=== PATIENT | female | born 1930 | race Caucasian/White ===

== ENCOUNTER 2017-07-14 21:46 | Emergency (ER) | payer OTHER, BC ==
[2017-07-14 21:56] VITALS: TEMP 97.5
--- NOTE | 2017-07-14 22:37 | EDPHY ---
H & P Stated Complaint: General weakness. Time Seen by Provider: 07/14/17 22:14 HPI/ROS: HPI The patient presents with generalized weakness which has been worse over the last 2 days though she has had symptoms for a few weeks now. She generally feels tired, somewhat short of breath, and has difficulty getting around the house. She normally is able to walk around the house with a walker, she does have residual weakness of her right leg from a stroke about 5 years ago. She feels that this weakness is now more pronounced. She occasionally feels dizzy with changes in position. She feels a funny sensation in her head. She denies any chest pain, nausea, vomiting, abdominal pain, constipation. She recently started on a gluten free diet. She denies any new medication changes.. REVIEW OF SYSTEMS Constitutional: No fever, no chills. Eyes: No discharge. ENT: No sore throat. Cardiovascular: No chest pain, no palpitations. Respiratory: No cough, no shortness of breath. Gastrointestinal: No abdominal pain, no vomiting. Genitourinary: No hematuria. Musculoskeletal: No back pain. Skin: No rashes. Neurological: No headache. PMHx: Hypertension, atrial fibrillation, diastolic CHF, hypothyroidism, history of CVA Soc Hx: Lives at home, daughter and son-in-law resides with her PHYSICAL General Appearance: Alert, no distress Eyes: Pupils equal and round no pallor or injection ENT, Mouth: Mucous membranes moist Respiratory: There are no retractions, lungs are clear to auscultation Cardiovascular: Regular rate and rhythm Gastrointestinal: Abdomen is soft and non-tender, no masses, bowel sounds normal Neurological: A&Ox3, cranial nerves 2-12 intact, no pronator drift, 5/5 strength in her upper extremities with right lower extremity weakness Skin: Warm and dry, no rashes Musculoskeletal: Neck is supple non tender Extremities: symmetrical, full range of motion Psychiatric: Patient is oriented X 3, there is no agitation Source: Patient, Family Exam Limitations: No limitations - Personal History Current Tetanus/Diphtheria Vaccine: Unsure Current Tetanus Diphtheria and Acellular Pertussis (TDAP): Unsure - Medical/Surgical History Hx Asthma: No Hx Chronic Respiratory Disease: No Hx Diabetes: No Hx Cardiac Disease: No Hx Renal Disease: No Hx Cirrhosis: No Hx Alcoholism: No Hx HIV/AIDS: No Hx Splenectomy or Spleen Trauma: No Other PMH: a-fib, UTI, thyroid out, appy, DM, HTN, CHF. - Social History Smoking Status: Never smoked Constitutional: Initial Vital Signs Temperature (C) 36.4 C 07/14/17 21:51 Heart Rate 74 07/14/17 21:51 Respiratory Rate 18 07/14/17 21:51 Blood Pressure 162/94 H 07/14/17 21:51 O2 Sat (%) 92 07/14/17 21:51 O2 Delivery Mode Room Air Allergies/Adverse Reactions: codeine Allergy (Verified 07/14/17 21:56) Home Medications: Medication Instructions Recorded Ergocalciferol [Vitamin D2 (*)] 50,000 unit PO Q7D 02/16/15 Levothyroxine [Synthroid 175 mcg 175 mcg PO DAILY06 02/16/15 (*)] Losartan Potassium [Cozaar 50 mg 50 mg PO DAILY 02/16/15 (*)] Metoprolol Succinate Xr [Toprol Xl 100 mg PO DAILY 02/16/15 100 mg (*)] metFORMIN HCL [Glucophage 500 mg 500 mg PO DAILY 02/16/15 (*)] Eliquis 07/14/17 Gabapentin 07/14/17 Nitrofurantoin Monohyd/M-Cryst 100 mg PO BID #10 capsule 07/15/17 [Macrobid 100 mg Capsule] Medical Decision Making - Diagnostics Imaging Results: Imaging Impressions Chest X-Ray 07/14/17 22:32 Impression: Stable mild cardiomegaly. Question mild bronchitis. Head CT 07/14/17 22:32 Impression: No evidence for acute intracranial abnormality. Small old infarct superior right cerebellum. Extensive periventricular and deep hemispheric white matter change can be seen with small vessel ischemic disease. Generalized cerebral atrophy. Results called and discussed with Lizbeth Uribe MD at 07/14/2017 22:58. Differential Diagnosis: This is an 87-year-old female with multiple medical problems including hypertension, diabetes, atrial fibrillation, the diastolic CHF, hypothyroidism who presents brought in by her family for weakness over the last several days. On exam, she has usual right-sided weakness of her leg, however otherwise has a nonfocal neurologic exam. Differential diagnosis is broad and includes infection such as UTI or pneumonia , electrolyte disturbance, renal failure, new CVA, atrial fibrillation, mi. In the emergency department, labs and studies were checked and were relatively unremarkable. We were able to obtain urine dip only given small specimen size. This was positive for for leukocytes. I feel UTI is most likely diagnosis here. I have ordered a dose of ceftriaxone for her. I have consulted with Dr. Veronique Robb on-call for the patient's primary care physician. Given that she has family at home to watch over her, she can be discharged home with prescription for antibiotics. Unfortunately, we have not been able to reach the patient's family who left because I was under the impression that the patient would likely be admitted to the hospital. We have called several times and left messages but have not heard back. I discussed the case again with Dr. Robb and we plan to keep the patient in the emergency room until daylight hours to see if we can get a hold of family. Fortunately, the patient has been resting comfortably throughout her time here. We did receive a call from the patient's daughter at about 8 o'clock, she will come and pick the patient up from the emergency department. I have conveyed this information to Dr. Robb. We will plan for close outpatient follow-up in few days. She is to take Macrobid until then. - Data Points Laboratory Results: Laboratory Results 07/14/17 23:04 07/14/17 23:04 07/14/17 07/14/17 23:04 23:04 WBC 7.31 10^3/uL 10^3/uL (3.80-9.50) RBC 4.25 10^6/uL 10^6/uL (4.18-5.33) Hgb 13.6 g/dL g/dL (12.6-16.3) Hct 39.7 % % (38.0-47.0) MCV 93.4 fL fL (81.5-99.8) MCH 32.0 pg pg (27.9-34.1) MCHC 34.3 g/dL g/dL (32.4-36.7) RDW 13.5 % % (11.5-15.2) Plt Count 169 10^3/uL 10^3/uL (150-400) MPV 10.6 fL fL (8.7-11.7) Neut % (Auto) 34.2 % L % (39.3-74.2) Lymph % (Auto) 51.4 % H % (15.0-45.0) [place] % (Auto) 11.8 % % (4.5-13.0) Eos % (Auto) 2.1 % % (0.6-7.6) Baso % (Auto) 0.4 % % (0.3-1.7) Nucleat RBC Rel Count 0.0 % % (0.0-0.2) Absolute Neuts (auto) 2.50 10^3/uL 10^3/uL (1.70-6.50) Absolute Lymphs (auto) 3.76 10^3/uL H 10^3/uL (1.00-3.00) Absolute Monos (auto) 0.86 10^3/uL H 10^3/uL (0.30-0.80) Absolute Eos (auto) 0.15 10^3/uL 10^3/uL (0.03-0.40) Absolute Basos (auto) 0.03 10^3/uL 10^3/uL (0.02-0.10) Absolute Nucleated RBC 0.00 10^3/uL 10^3/uL (0-0.01) Immature Gran % 0.1 % % (0.0-1.1) Immature Gran # 0.01 10^3/uL 10^3/uL (0.00-0.10) Sodium 138 mEq/L mEq/L (134-144) Potassium 3.9 mEq/L mEq/L (3.5-5.2) Chloride 101 mEq/L mEq/L (97-110) Carbon Dioxide 25 mEq/l mEq/l (22-31) Anion Gap 12 mEq/L mEq/L (8-16) BUN 16 mg/dL mg/dL (7-23) Creatinine 0.8 mg/dL mg/dL (0.6-1.0) Estimated GFR > 60 Glucose 113 mg/dL H mg/dL (70-100) Calcium 9.7 mg/dL mg/dL (8.5-10.4) Total Bilirubin 0.5 mg/dL mg/dL (0.1-1.4) Conjugated Bilirubin 0.3 mg/dL mg/dL (0.0-0.5) Unconjugated Bilirubin 0.2 mg/dL mg/dL (0.0-1.1) AST 31 IU/L IU/L (14-46) ALT 55 IU/L H IU/L (9-52) Alkaline Phosphatase 53 IU/L IU/L (38-126) Troponin I < 0.012 ng/mL ng/mL (0.000-0.034) NT-Pro-B Natriuret Pep 346 pg/mL pg/mL (0-450) Total Protein 7.3 g/dL g/dL (6.3-8.2) Albumin 4.1 g/dL g/dL (3.5-5.0) TSH 29.000 uIU/mL H uIU/mL (0.465-4.680) Medications Given: Discontinued Medications Ceftriaxone Sodium/Dextrose (Rocephin 1 Gm (Premix)) 50 mls @ 100 mls/hr IV EDNOW ONE PRN Reason: Protocol Stop: 07/15/17 01:01 Last Admin: 07/15/17 00:39 Dose: 50 mls Departure - Departure Disposition: Home, Routine, Self-Care Clinical Impression: UTI (urinary tract infection) Qualifiers: Urinary tract infection type: site unspecified Hematuria presence: without hematuria Qualified Code(s): N39.0 - Urinary tract infection, site not specified Condition: Good
--- NOTE | 2017-07-14 23:14 | CPEKG ---
Heart Rate: 71 RR Interval: 845 QRSD Interval: 90 QT Interval: 412 QTC Interval: 448 QRS [place]: -32 T Wave [place]: -38 EKG Severity - ABNORMAL ECG - EKG Impression: ATRIAL FIBRILLATION EKG Impression: VENTRICULAR PREMATURE COMPLEX EKG Impression: LEFT AXIS DEVIATION EKG Impression: BORDERLINE T ABNORMALITIES, INFERIOR LEADS Electronically Signed By: Lizbeth Uribe 15-Jul-2017 08:03:26
[2017-07-14 23:28] LABS: % IMMATURE GRANULYOCYTES 0.1 % (0.0-1.1); ABSOLUTE IMMATURE GRANULOCYTES 0.01 10^3/uL (0.00-0.10); ADD DIFF? NO; ADD MORPH? NO; ADD SCAN? NO; ATYPICAL LYMPHOCYTE FLAG 10 (0-99); FRAGMENT RBC FLAG 0 (0-99); HEMATOCRIT 39.7 % (38.0-47.0); HEMOGLOBIN 13.6 g/dL (12.6-16.3); LEFT SHIFT FLG 0 (0-99); LIPEMIA HEMOLYSIS FLAG 90 (0-99); MEAN CELL HEMOGLOBIN CONCENTR. 34.3 g/dL (32.4-36.7); MEAN CELL VOLUME 93.4 fL (81.5-99.8); MEAN PLATELET VOLUME 10.6 fL (8.7-11.7); PLATELET CLUMPS FLAG 0 (0-99); PLATELET COUNT 169 10^3/uL (150-400); RED BLOOD CELL COUNT 4.25 10^6/uL (4.18-5.33); RED CELL DISTRIBUTION WIDTH 13.5 % (11.5-15.2)
[2017-07-14 23:57] LABS: ALANINE AMINOTRANSFERASE 55 IU/L (9-52); ALBUMIN 4.1 g/dL (3.5-5.0); ALKALINE PHOSPHATASE 53 IU/L (38-126); ANION GAP 12 mEq/L (8-16); ASPARTATE AMINOTRANSFERASE 31 IU/L (14-46); BILIRUBIN,TOTAL 0.5 mg/dL (0.1-1.4); BILIRUBIN-CONJUGATED 0.3 mg/dL (0.0-0.5); BILIRUBIN-UNCONJUGATED 0.2 mg/dL (0.0-1.1); CALCIUM 9.7 mg/dL (8.5-10.4); CARBON DIOXIDE 25 mEq/l (22-31); CHLORIDE 101 mEq/L (97-110); CREATININE 0.8 mg/dL (0.6-1.0); GLOMERULAR FILTRATION RATE > 60; GLUCOSE 113 mg/dL (70-100); POTASSIUM 3.9 mEq/L (3.5-5.2); SODIUM 138 mEq/L (134-144); TOTAL PROTEIN 7.3 g/dL (6.3-8.2)
[2017-07-15 00:09] LABS: TROPONIN I < 0.012 ng/mL (0.000-0.034)
[2017-07-15 08:05] VITALS: RESP 16
[2017-07-15 09:22] VITALS: BP 150/60; PULSE 70; O2SAT 95
== END 2017-07-15 09:35 | disposition home or self-care (01) ==
LOC: UNDOADMOB 07-15 07:10
DX: N39.0 Urinary tract infection, site not specified (principal); I11.0 Hypertensive heart disease with heart failure; I50.9 Heart failure, unspecified; E11.9 Type 2 diabetes mellitus without complications; Z79.01 Long term (current) use of anticoagulants; Z79.84 Long term (current) use of oral hypoglycemic drugs; Z86.73 Personal history of transient ischemic attack (TIA), and cerebral infarction without residual deficits
CPT/HCPCS: 70450; 71020; 93005; J0696; 96365

== ENCOUNTER 2017-10-28 14:44 | Inpatient (IN) | payer OTHER, BC ==
--- NOTE | 2017-10-28 14:55 | EDPHY ---
H & P Time Seen by Provider: 10/28/17 14:47 HPI/ROS: CHIEF COMPLAINT: Weakness, fall HISTORY OF PRESENT ILLNESS: The patient presents to the emergency department by paramedics after she has had increasing weakness today. The patient reportedly suffered a mechanical fall last night. She did not strike her head or lose consciousness. She is anticoagulated chronically for atrial fibrillation. Patient also has a remote history of stroke resulting in some right-sided weakness. She typically is able to ambulate but has been unable to do so today. The patient denies any localizing numbness or weakness. The daughter does report she has had a 3 day history of a dry cough. The patient's urine is also been foul smelling. The patient was seen in the emergency department in June of this year with similar weakness and was diagnosed with a urinary tract infection. The patient denies any vomiting, abdominal pain or diarrhea. REVIEW OF SYSTEMS: A comprehensive 10 point review of systems is otherwise negative aside from elements mentioned in the history of present illness. Source: Patient Exam Limitations: No limitations - Medical/Surgical History Hx Asthma: No Hx Chronic Respiratory Disease: No Hx Diabetes: No Hx Cardiac Disease: No Hx Renal Disease: No Hx Cirrhosis: No Hx Alcoholism: No Hx HIV/AIDS: No Hx Splenectomy or Spleen Trauma: No Other PMH: a-fib, UTI, thyroid out, appy, DM, HTN, CHF. - Social History Smoking Status: Never smoked - Physical Exam Exam: General Appearance: Elderly female, obese, no acute distress Eyes: Pupils equal and round no pallor or injection ENT, Mouth: Mucous membranes moist Respiratory: There are no retractions, lungs are clear to auscultation Cardiovascular: Irregular consistent with her known history of atrial fibrillation Gastrointestinal: Abdomen is soft and nontender, no masses, bowel sounds normal Neurological: Right-sided weakness noted from prior stroke, grossly normal cranial nerves Skin: Warm and dry, no rashes Musculoskeletal: Neck is supple nontender Extremities: symmetrical, full range of motion Constitutional: Initial Vital Signs Temperature (C) 36.9 C 10/28/17 14:53 Heart Rate 98 10/28/17 14:53 Respiratory Rate 18 10/28/17 14:53 Blood Pressure 126/65 H 10/28/17 14:53 O2 Sat (%) 93 10/28/17 14:53 O2 Delivery Mode Room Air Allergies/Adverse Reactions: levothyroxine Allergy (Mild, Verified 10/28/17 17:31) Other-Enter Comments codeine Allergy (Verified 10/28/17 17:31) Unknown gluten Allergy (Verified 10/28/17 17:31) Diarrhea Home Medications: Medication Instructions Recorded Apixaban [Eliquis] 5 mg PO BID 10/28/17 Chlorthalidone [Chlorthalidone 25 12.5 mg PO DAILY 10/28/17 mg (*)] Ergocalciferol [Vitamin D2 (*)] 50,000 unit PO CHOI 10/28/17 Gabapentin [Neurontin 100 MG (*)] 100 mg PO HS 10/28/17 Levothyroxine [Synthroid 125 mcg 125 mcg PO DAILY06 10/28/17 (*)] Liothyronine Sodium [Cytomel] 5 mcg PO BID 10/28/17 Losartan Potassium [Cozaar 50 mg 50 mg PO BID 10/28/17 (*)] Metoprolol Succinate Xr [Toprol Xl 75 mg PO DAILY 10/28/17 50 mg (*)] metFORMIN HCL [Glucophage 500 mg 500 mg PO DAILY 10/28/17 (*)] traZODone [traZODONE 50MG (*)] 100 mg PO HS 10/28/17 Medical Decision Making - Diagnostics EKG Interpretation: EKG: Complete interpretation has been separately recorded in the [email or web address] archive. Summary impression: Atrial fibrillation, rate 103, no ST segment elevation or depression Imaging Results: Imaging Impressions Chest X-Ray 10/28/17 15:02 Impression: Stable mild cardiomegaly. Question minimal bronchitis. Head CT 10/28/17 15:02 Impression: 1. Stable elderly brain. Specifically no hemorrhage. 2. New ethmoid mucosal thickening. Results called to Dr. Ino Albarado at 3:44 PM General information for patients regarding this examination can be found at [email or web address]. If you have questions or comments about this report, please contact me at [phone] (hospital) or [phone] (cell). ED Course/Re-evaluation: The patient presents the ED with acutely worsening generalized weakness for the past day. The patient is currently anticoagulated for atrial fibrillation. She did reportedly fall and strike her head last night. The patient was taken for a noncontrast head CT scan which demonstrates no evidence of intracranial hemorrhage. The patient's chest x-ray demonstrates mild bronchitis. Her urinalysis demonstrates no evidence of infection. Her EKG shows chronic atrial fibrillation. The patient presents to the ED with global weakness in the setting of a recent mild cough and likely viral syndrome. The patient is unable to safely ambulate and is a fall risk. The patient's family does not feel as if she can safely be discharged home. The patient will be admitted to the hospital for gentle IV fluid rehydration this evening. I re-evaluated the patient at 5:00 p.m. and she continues to be in no acute distress. Consultation was made with her on-call primary care provider who will admit the patient this evening. She will be admitted by Dr. Garibay. The patient was given an albuterol nebulizer for cough. I have ordered a influenza PCR. Differential Diagnosis: Differential diagnosis considered includes pneumonia, urinary tract infection, dehydration, intracranial hemorrhage, metabolic abnormality, renal failure - Data Points Laboratory Results: Laboratory Results 10/28/17 15:40 10/28/17 15:40 10/28/17 10/28/17 10/28/17 16:05 15:40 15:40 WBC 4.62 10^3/uL 10^3/uL (3.80-9.50) RBC 4.26 10^6/uL 10^6/uL (4.18-5.33) Hgb 14.1 g/dL g/dL (12.6-16.3) Hct 39.4 % % (38.0-47.0) MCV 92.5 fL fL (81.5-99.8) MCH 33.1 pg pg (27.9-34.1) MCHC 35.8 g/dL g/dL (32.4-36.7) RDW 13.2 % % (11.5-15.2) Plt Count 138 10^3/uL L 10^3/uL (150-400) MPV 9.7 fL fL (8.7-11.7) Neut % (Auto) 61.1 % % (39.3-74.2) Lymph % (Auto) 19.3 % % (15.0-45.0) [place] % (Auto) 18.4 % H % (4.5-13.0) Eos % (Auto) 0.4 % L % (0.6-7.6) Baso % (Auto) 0.4 % % (0.3-1.7) Nucleat RBC Rel Count 0.0 % % (0.0-0.2) Absolute Neuts (auto) 2.82 10^3/uL 10^3/uL (1.70-6.50) Absolute Lymphs (auto) 0.89 10^3/uL L 10^3/uL (1.00-3.00) Absolute Monos (auto) 0.85 10^3/uL H 10^3/uL (0.30-0.80) Absolute Eos (auto) 0.02 10^3/uL L 10^3/uL (0.03-0.40) Absolute Basos (auto) 0.02 10^3/uL 10^3/uL (0.02-0.10) Absolute Nucleated RBC 0.00 10^3/uL 10^3/uL (0-0.01) Immature Gran % 0.4 % % (0.0-1.1) Immature Gran # 0.02 10^3/uL 10^3/uL (0.00-0.10) Sodium 137 mEq/L mEq/L (134-144) Potassium 3.8 mEq/L mEq/L (3.5-5.2) Chloride 98 mEq/L mEq/L (97-110) Carbon Dioxide 27 mEq/l mEq/l (22-31) Anion Gap 12 mEq/L mEq/L (8-16) BUN 12 mg/dL mg/dL (7-23) Creatinine 0.8 mg/dL mg/dL (0.6-1.0) Estimated GFR > 60 Glucose 142 mg/dL H mg/dL (70-100) Calcium 9.4 mg/dL mg/dL (8.5-10.4) Urine Color YELLOW Urine Appearance HAZY Urine pH 6.0 (5.0-7.5) Ur Specific [place] 1.017 (1.002-1.030) Urine Protein NEGATIVE (NEGATIVE) Urine Ketones NEGATIVE (NEGATIVE) Urine Blood NEGATIVE (NEGATIVE) Urine Nitrate NEGATIVE (NEGATIVE) Urine Bilirubin NEGATIVE (NEGATIVE) Urine Urobilinogen NEGATIVE EU EU (0.2-1.0) Ur Leukocyte Esterase NEGATIVE (NEGATIVE) Urine Glucose NEGATIVE (NEGATIVE) Medications Given: Discontinued Medications Albuterol (Proventil Neb) 3 ml IH EDNOW ONE Stop: 10/28/17 16:51 Last Admin: 10/28/17 16:56 Dose: 3 ml Sodium Chloride (Ns) 500 mls @ 0 mls/hr IV EDNOW ONE; Wide Open PRN Reason: Protocol Stop: 10/28/17 16:37 Last Admin: 10/28/17 16:44 Dose: 500 mls Departure - Departure Disposition: [facility]
--- NOTE | 2017-10-28 15:03 | CPEKG ---
Heart Rate: 103 RR Interval: 583 QRSD Interval: 88 QT Interval: 339 QTC Interval: 444 QRS [place]: -42 EKG Severity - ABNORMAL ECG - EKG Impression: ATRIAL FIBRILLATION, V-RATE 79-128 EKG Impression: LEFT AXIS DEVIATION Electronically Signed By: Brandon Albarado 28-Oct-2017 15:47:37
[2017-10-28 15:46] LABS: PLATELET COUNT 138 10^3/uL (150-400)
[2017-10-28] MEDS ORDERED: NS 500 ML IV ONE (16:36)
[2017-10-28] MEDS ORDERED: ALBUTEROL 3 ML DEYVIAL IH ONE (16:50)
--- NOTE | 2017-10-28 19:53 | GHP ---
[f rep st] HISTORY AND PHYSICAL DATE OF ADMISSION: 10/28/2017 REASON FOR ADMISSION: Influenza A, weakness. HISTORY: The patient is an 87-year-old female who has had a cough for the last 2 days. Yesterday parvin butler was feeling weak and fell trying to use her walker, and today has been too weak to get around, get out of bed, or do anything. She has no appetite. She has a nonproductive cough and generalized musc le aches. PAST MEDICAL HISTORY: Thyroidectomy for a benign tumor at 66, atrial fibrillation since 2010, type 2 diabetes, hypertension, mild short-term memory loss, CVA due to atrial fibrillation 2010 with mild r ight-sided weakness and some minimal speech limitation, macular degeneration, dental issues, congesti ve heart failure unspecified, hypothyroidism, peripheral vascular disease, chronic insomnia, and hypo belinda. CURRENT MEDICATIONS ARE: Chlorthalidone 12.5 mg daily, metformin 500 mg daily, trazodone 50 mg b.i.d ., losartan 50 mg b.i.d., metoprolol succinate 75 mg once daily, Synthroid 125 mcg p.o. daily, Eliqui s 5 mg b.i.d., ergocalciferol 50,000 units every 7 days, gabapentin 100 mg 1-2 h.s. for sleep, choles tyramine 1 scoop twice daily with juice or water, Lorazepam 0.5 mg twice daily as needed, vitamin D3 2,000 units once daily. REVIEW OF SYSTEMS: Consistent with the HPI. She is very weak, unable to walk, unable to move around . She has trouble rolling over in bed even. She has muscle soreness. Nonproductive cough. She den ies fever or chills. PHYSICAL EXAMINATION: GENERAL: An 87-year-old patient who appears stated age. VITAL SIGNS: Blood pressure 131/99, pulse 92 and irregular, respiratory rate 16, oxygen saturation is 93% on room air, t emperature is 98 orally. EYES: Pupils are equal and reactive. LUNGS: Clear to auscultation. HEAR T: Irregularly irregular rhythm. ABDOMEN: Nontender. EXTREMITIES: She has 1+ ankle edema. NEURO : She moves all extremities, but has difficulty rolling and moving in bed on her own. LABORATORY DATA: Blood work reveals a normal white count, but with an elevated mono, and a relativel y low absolute lymphocyte count. Platelet count is 138,000, which is lower than her usual, which is between 269,00 and 200,000. Chemistry reveals sodium 137, potassium 3.8, chloride 98, BUN 12, creati nine 0.8, glucose 142. Nasal swab for influenza was negative for B, but positive for influenza A. IMPRESSION: Elderly female with diabetes, congestive heart failure, hypothyroidism, presents with we akness secondary to influenza A. PLAN: We will admit. We will place on respiratory isolation. We will place on Tamiflu. We will ob serve closely. We will monitor blood sugars. /[id number]/MODL
[2017-10-28] MEDS: LIOTHYRONINE SODIUM 5 MCG TAB PO SCH (19:58)
[2017-10-28] MEDS: LOSARTAN POTASSIUM 50 MG TAB PO SCH (19:59)
[2017-10-28] MEDS: OSELTAMIVIR PHOSPHATE 75 MG CAP PO SCH (19:59)
[2017-10-28] MEDS: GABAPENTIN 100 MG CAP PO SCH (19:59)
[2017-10-28] MEDS: APIXABAN 5 MG TAB PO SCH (19:59)
[2017-10-28] MEDS: traZODone 100 MG TAB PO SCH (19:59)
[2017-10-29] MEDS: LEVOTHYROXINE 125 MCG TAB PO SCH (06:14)
[2017-10-29] MEDS ORDERED: METOPROLOL SUCCINATE XR 50 MG TAB PO SCH (09:00)
[2017-10-29] MEDS ORDERED: ERGOCALCIFEROL 50,000 I.UNIT CAP PO SCH (09:00)
[2017-10-29] MEDS: OSELTAMIVIR PHOSPHATE 75 MG CAP PO SCH (09:05)
[2017-10-29] MEDS: LIOTHYRONINE SODIUM 5 MCG TAB PO SCH ×2 (09:08→21:32)
[2017-10-29] MEDS: APIXABAN 5 MG TAB PO SCH ×2 (09:08→21:35)
[2017-10-29] MEDS: metFORMIN HCL 500 MG TAB PO SCH (09:09)
[2017-10-29] MEDS: CHLORTHALIDONE 25 MG TAB PO SCH (11:07)
[2017-10-29] MEDS: LOSARTAN POTASSIUM 50 MG TAB PO SCH ×2 (11:07→21:34)
[2017-10-29] MEDS ORDERED: NS 1,000 ML IV ONE (12:31)
[2017-10-29] MEDS ORDERED: BENZONATATE 100 MG CAP PO PRN (12:41)
--- NOTE | 2017-10-29 12:41 | SOAPPROG ---
SOAP Progress Note Assessment/Plan: Assessment: Hypotension. Influenza is improved. Plan: Hold and reduce BP meds. Will give IV saline now. Recheck labs. 10/29/17 12:40 Subjective: Having a cough. Appetite is poor however very critical of the food. Objective: Vital Signs Temp Pulse Resp BP Pulse Ox 97.7 F 68 15 123/65 H 92 10/29/17 12:00 10/29/17 12:00 10/29/17 12:00 10/29/17 12:00 10/29/17 12:00 10/28/17 10/29/17 10/30/17 05:59 05:59 05:59 Intake Total 500 Balance 500 Much more alert than last night. Stronger. Able to sit forward in bed. [place] with much less help than last night. BP however is very low. ICD10 Worksheet Patient Problems: Problems Problem Status Onset Atrial fibrillation Acute Chronic Disease Mgmt/Transitional Care Acute
[2017-10-29 13:09] LABS: PLATELET COUNT 127 10^3/uL (150-400)
--- NOTE | 2017-10-29 15:42 | ASMTCMCOM ---
CM Note CM Note Notes: 87 year old female admitted for Influenza A and weakness. She has a hx of DM, CHF, Hypothyroid, Memory loss, CVA, R sided weakness, Macular degeneration, limited speech, PVD, Insomnia, Hypoxia, dental issues. Therapies to eval for discharge needs. CM to follow. Date Signed: 10/29/2017 03:42 PM Electronically Signed By:Olga Massey LCSW
[2017-10-29] MEDS: OSELTAMIVIR 6 MG/ML UDSYR PO SCH (17:55)
[2017-10-29] MEDS: GABAPENTIN 100 MG CAP PO SCH (21:33)
[2017-10-29] MEDS: METOPROLOL SUCCINATE XR 50 MG TAB PO SCH (21:33)
[2017-10-29] MEDS: traZODone 100 MG TAB PO SCH (21:35)
[2017-10-30] MEDS: LEVOTHYROXINE 125 MCG TAB PO SCH (06:13)
[2017-10-30] MEDS: OSELTAMIVIR 6 MG/ML UDSYR PO SCH (09:11)
[2017-10-30] MEDS: APIXABAN 5 MG TAB PO SCH (09:12)
[2017-10-30] MEDS: CHLORTHALIDONE 25 MG TAB PO SCH (09:12)
[2017-10-30] MEDS: LOSARTAN POTASSIUM 50 MG TAB PO SCH (09:12)
[2017-10-30] MEDS: metFORMIN HCL 500 MG TAB PO SCH (09:12)
[2017-10-30] MEDS: LIOTHYRONINE SODIUM 5 MCG TAB PO SCH (09:12)
[2017-10-30] MEDS: METOPROLOL SUCCINATE XR 50 MG TAB PO SCH (09:12)
[2017-10-30 09:17] VITALS: PULSE 88
[2017-10-30 11:28] VITALS: BP 117/81; RESP 16; TEMP 97.1; O2SAT 93
--- NOTE | 2017-10-30 14:18 | SOAPPROG ---
SOAP Progress Note Assessment/Plan: Assessment: Hypotension. Influenza is improved. Plan: DC to home. 10/29/17 12:40 10/30/17 14:18 Subjective: Doing well. Much stronger. Able to ambulate in [place]. Objective: Vital Signs Temp Pulse Resp BP Pulse Ox 97.1 F 88 16 117/81 H 93 10/30/17 11:27 10/30/17 11:27 10/30/17 11:27 10/30/17 11:27 10/30/17 11:27 Laboratory Results 10/29/17 13:00 10/29/17 13:00 10/29/17 10/30/17 10/31/17 05:59 05:59 05:59 Intake Total 1950 Output Total 1000 100 Balance 950 -100 BP improved. Lungs clear to asc, COR irreg rhythm witih controlled rate. ICD10 Worksheet Patient Problems: Problems Problem Status Onset Atrial fibrillation Acute Chronic Disease Mgmt/Transitional Care Acute
--- NOTE | 2017-10-30 14:59 | GDS ---
[f rep st] DISCHARGE SUMMARY ADMISSION DIAGNOSIS: Weakness. Type A influenza. DISCHARGE DIAGNOSIS: Weakness. Type A influenza. ADDITIONAL DIAGNOSIS: Hypertension. PROCEDURES: Tamiflu initially 75 mg b.i.d., then this was reduced to 30 mg b.i.d. after her 2nd dose . Medications for blood pressure were reduced during hospitalization. HOSPITAL COURSE: Patient was admitted very weak and found to have positive nasal swab for influenza A. She was placed on Tamiflu. She was very hypotensive with blood pressures in the low 90s systolic . Her blood pressure medications were mostly held for a dosage, and the metoprolol and losartan dose s were reduced to 25 mg b.i.d. for both of these medications. Her chlorthalidone was continued at 12 .5 mg daily. She did well over the next 2 days and is being discharged. MEDICATIONS AT TIME OF DISCHARGE: Eliquis 5 mg b.i.d., Tessalon Perles 200 mg t.i.d. p.r.n. cough, c hlorthalidone 12.5 mg daily, vitamin D2 5000 international units daily, gabapentin 100 mg h.s., levot hyroxine 125 mcg daily, liothyronine 5 mcg twice daily, losartan 25 mg twice daily, metformin 500 mg daily, metoprolol succinate 25 mg b.i.d., Tamiflu suspension 30 mg b.i.d. with meals, trazodone 100 m g at h.s. FOLLOWUP: She will follow up with her physician within the week. /[id number]/MODL
--- NOTE | 2017-10-31 09:32 | ASDISCHSUM ---
Discharge Information Plan Status:Home with No Needs Medically Cleared to Leave:10/29/2017 Discharge Date:10/30/2017 04:25 PM CM D/C Disposition:Home, Routine, Self-Care ADT D/C Disposition:Home, Routine, Self-Care Projected Discharge Date:10/30/2017 03:00 PM Transportation at D/C:Family Discharge Delay Reason: Follow-Up Date:10/30/2017 03:00 PM Discharge Slot:2 - 12:01 pm - 18:00 pm Final Diagnosis:Hypotension, Influenza Placement Information Patient Contact Information Contact Name:KALIE Relationship:Daughter Address: Work Phone: City: [facility] Phone: State/[place] Code: Email: Financial Information Financial Class: Primary Plan Desc:MEDICARE OUTPATIENT Primary Plan Number:[id number] Secondary Plan Desc:[facility] Secondary Plan Number:[id number] Assessment Information [facility] CM Progress Note CM Note CM Note Notes: 87 year old female admitted for Influenza A and weakness. She has a hx of DM, CHF, Hypothyroid, Memory loss, CVA, R sided weakness, Macular degeneration, limited speech, PVD, Insomnia, Hypoxia, dental issues. Therapies to eval for discharge needs. CM to follow. Date Signed: 10/29/2017 03:42 PM Electronically Signed By:Olga Massey LCSW Case Management Discharge Plan Note Case Management Discharge Discharge Order Complete? Answers: Yes Patient to Obtain Answers: via Family Medications Transportation Arranged Answers: Family/Friends Transport will Pick (Date 10/30/2017 03:00 PM & Time) Family Notified Answers: Yes Notes: Family to transport Discharge Comments Notes: Patient has been discharged. Patient lives with her daughter and has caregivers 5 days/week. No discharge needs. Date Signed: 10/30/2017 02:44 PM Electronically Signed By:Olga Massey LCSW Intervention Information Intervention Type:*Occurence 72 Date of Service:10/31/2017 08:47 AM Patient Type:Inpatient Staff Member:CELESTE Garay Susan Hours: Discipline: Severity: Comment:
== END 2017-10-30 16:25 | disposition home or self-care (01) | DRG 195 ==
LOC: EDUNIT# → F3N 18:25 → OBSVTOIN 10-29 12:48
PROVIDERS: ADMIT Internal Medicine; ATTEND Internal Medicine
DX: J10.1 Influenza due to other identified influenza virus with other respiratory manifestations (principal); I10 Essential (primary) hypertension; E11.9 Type 2 diabetes mellitus without complications; I73.9 Peripheral vascular disease, unspecified; I50.9 Heart failure, unspecified; I48.91 Unspecified atrial fibrillation; E03.9 Hypothyroidism, unspecified; Z87.440 Personal history of urinary (tract) infections; Z86.73 Personal history of transient ischemic attack (TIA), and cerebral infarction without residual deficits; Z79.01 Long term (current) use of anticoagulants
CPT/HCPCS: 97161-GP; G0378; G8978-GP-CI; G8979-GP-CI; G8980-GP-CI

== ENCOUNTER 2018-09-09 01:00 | Observation (INO) | payer OTHER, BC ==
[2018-09-09] MEDS ORDERED: NS 500 ML IV ONE (01:26)
[2018-09-09 01:28] LABS: PLATELET COUNT 193 10^3/uL (150-400)
--- NOTE | 2018-09-09 01:32 | EDPHY ---
H & P Stated Complaint: CONSTIPATION X4 DAYS, ABD PAIN, URINARY FREQUENCY Time Seen by Provider: 09/09/18 01:29 HPI/ROS: HPI The patient presents with left-sided abdominal pain which has been present for about 1 day. She describes it as diffuse on her left side, dull in nature though occasionally becomes constant and began yesterday slowly. She noticed tonight when she tried to have a bowel movement at 7:00 p.m. She was unable to. She had a normal bowel movement earlier in the afternoon. She has been hungry and ate dinner without any difficulty. She has not had any nausea or vomiting. She has oscillating between diarrhea and constipation in the last several weeks. She has no changes to her medications. She is brought in by ambulance. She is here with her daughter. REVIEW OF SYSTEMS 10 systems were reviewed and negative with the exception of the elements mentioned in the history of present illness. PMHx: Atrial fibrillation, hypertension, CHF, frequent urinary tract infections , The primary care doctor is Dr. Garibay Soc Hx: Lives at home PHYSICAL General Appearance: Alert, no distress Eyes: Pupils equal and round no pallor or injection ENT, Mouth: Mucous membranes moist Respiratory: There are no retractions, lungs are clear to auscultation Cardiovascular: Irregularly irregular Gastrointestinal: Abdomen is soft slightly distended with tenderness in the left upper and lower quadrants which is mild to moderate without rebound or guarding no masses, bowel sounds normal Neurological: A&O, moves all extremities Skin: Warm and dry, no rashes Musculoskeletal: Neck is supple non tender Extremities: symmetrical, full range of motion Psychiatric: Patient is oriented X 3, there is no agitation Source: Patient, Family, Old records Exam Limitations: No limitations - Personal History Current Tetanus/Diphtheria Vaccine: Yes Current Tetanus Diphtheria and Acellular Pertussis (TDAP): Yes - Medical/Surgical History Hx Asthma: No Hx Chronic Respiratory Disease: No Hx Diabetes: No Hx Cardiac Disease: No Hx Renal Disease: No Hx Cirrhosis: No Hx Alcoholism: No Hx HIV/AIDS: No Hx Splenectomy or Spleen Trauma: No Other PMH: a-fib, UTI, thyroid out, appy, DM, HTN, CHF. - Social History Smoking Status: Never smoked Constitutional: Initial Vital Signs Temperature (C) 36.7 C 09/09/18 01:05 Heart Rate 113 H 09/09/18 01:05 Respiratory Rate 18 09/09/18 01:05 Blood Pressure 141/98 H 09/09/18 01:05 O2 Sat (%) 92 09/09/18 01:05 O2 Delivery Mode Room Air Allergies/Adverse Reactions: levothyroxine Allergy (Mild, Verified 09/09/18 01:04) Other-Enter Comments codeine Allergy (Verified 09/09/18 01:04) Unknown gluten Allergy (Verified 09/09/18 01:04) Diarrhea Home Medications: Medication Instructions Recorded Apixaban [Eliquis] 5 mg PO BID 10/28/17 Chlorthalidone [Chlorthalidone 25 12.5 mg PO SUTUTHSA 10/28/17 mg (*)] Ergocalciferol [Vitamin D2 (*)] 50,000 unit PO CHOI@18 10/28/17 Gabapentin [Neurontin 100 MG (*)] 100 mg PO HS 10/28/17 Levothyroxine [Synthroid 125 mcg 125 mcg PO DAILY06 10/28/17 (*)] Liothyronine Sodium [Cytomel 5 mcg 5 mcg PO BID 10/28/17 (*)] metFORMIN HCL [Glucophage 500 mg 500 mg PO DAILY@08 10/28/17 (*)] traZODone [traZODONE 50MG (*)] 100 mg PO HS 10/28/17 Losartan Potassium [Cozaar 50 mg 25 mg PO BID #60 tab 10/30/17 (*)] Acetaminophen [Tylenol 325mg (*)] 650 mg PO Q4HRS PRN tab 09/09/18 Cholecalciferol Vit D3 [Vitamin D3 2,000 units PO DAILY 09/09/18 2000 units tab (OTC)] Ciprofloxacin 400 mg/Dextrose 500 mg PO Q12H 7 Days tab 09/09/18 [Cipro Premix] Cyanocobalamin [Vitamin B12 (*)] 1,000 mcg PO HS 09/09/18 Herbals/Supplements -Info Only 1 ea PO DAILY 09/09/18 Ibuprofen [Motrin (*)] 400 mg PO Q4HRS PRN tab 09/09/18 Metoprolol Succinate Xr [Toprol Xl 25 mg PO DAILY 09/09/18 50 mg (*)] diphenhydrAMINE [Benadryl 25 MG 25 mg PO Q6HRS PRN cap 09/09/18 (*)] Medical Decision Making - Diagnostics Imaging Results: CT abdomen pelvis with IV contrast demonstrates diverticulitis, discussed with Dr. Murphy of Radiology. Imaging: Discussed imaging studies w/ call center operator Radiologist Differential Diagnosis: This is a very pleasant 88-year-old female with multiple medical problems including frequent UTI, diabetes, hypertension, atrial fibrillation who presents brought in by ambulance from home with 1 day of left-sided abdominal pain in association with constipation. Differential diagnosis includes diverticulitis, colitis, constipation, pancreatitis. CT scan demonstrates diverticulitis. Patient will be admitted for observation to [facility] under Dr. Garibay. - Data Points Laboratory Results: Laboratory Results 09/09/18 01:00 09/09/18 01:00 Medications Given: Discontinued Medications Apixaban (Eliquis) 5 mg PO BID JEREMY Stop: 03/08/19 08:59 Last Admin: 09/09/18 08:18 Dose: 5 mg Chlorthalidone (Chlorthalidone) 12.5 mg PO DAILY JEREMY Stop: 03/08/19 08:59 Last Admin: 09/09/18 08:18 Dose: 12.5 mg Chlorthalidone (Chlorthalidone) 12.5 mg PO SuTuThSa JEREMY Stop: 03/08/19 08:18 Last Admin: 09/09/18 08:22 Dose: Not Given Sodium Chloride (Ns) 500 mls @ 1,000 mls/hr IV EDNOW ONE PRN Reason: Protocol Stop: 09/09/18 01:55 Last Admin: 09/09/18 01:31 Dose: 500 mls Ciprofloxacin/Dextrose (Cipro 400 Mg (Premix)) 200 mls @ 200 mls/hr IV EDNOW ONE PRN Reason: Protocol Stop: 09/09/18 03:39 Last Admin: 09/09/18 02:57 Dose: 200 mls Metronidazole/Sodium Chloride (Flagyl 500 Mg (Premix)) 100 mls @ 100 mls/hr IV EDNOW ONE PRN Reason: Protocol Stop: 09/09/18 03:39 Last Admin: 09/09/18 04:27 Dose: Not Given Sodium Chloride (Ns) 1,000 mls @ 125 mls/hr IV CONT JEREMY Stop: 03/08/19 03:29 Last Admin: 09/09/18 06:59 Dose: 1,000 mls Metronidazole/Sodium Chloride (Flagyl 500 Mg (Premix)) 100 mls @ 100 mls/hr IV Q8H [facility] PRN Reason: Protocol Stop: 10/09/18 04:29 Last Admin: 09/09/18 12:03 Dose: 100 mls Influenza Virus Vaccine Quadrival (Flulaval Quad [id number] (6mo+)) 0.5 ml IM .ONCE ONE Stop: 09/09/18 12:05 Last Admin: 09/09/18 12:26 Dose: 0.5 ml Levothyroxine Sodium (Synthroid) 125 mcg PO DAILY06 [facility] Stop: 03/08/19 05:59 Last Admin: 09/09/18 06:09 Dose: Not Given Liothyronine Sodium (Cytomel) 5 mcg PO BID [facility] Stop: 03/08/19 08:59 Last Admin: 09/09/18 08:22 Dose: Not Given Losartan Potassium (Cozaar) 25 mg PO BID [facility] Stop: 03/08/19 08:59 Last Admin: 09/09/18 08:20 Dose: 25 mg Metoprolol Succinate (Toprol Xl) 25 mg PO BID [facility] Stop: 03/08/19 08:59 Last Admin: 09/09/18 08:19 Dose: 25 mg Metoprolol Succinate (Toprol Xl) 25 mg PO DAILY [facility] Stop: 03/08/19 10:44 Last Admin: 09/09/18 11:39 Dose: Not Given Departure - Departure Disposition: [facility] Acute Clinical Impression: Diverticulitis Atrial fibrillation Qualifiers: Atrial fibrillation type: chronic Qualified Code(s): I48.2 - Chronic atrial fibrillation HTN (hypertension) Qualifiers: Hypertension type: unspecified Qualified Code(s): I10 - Essential (primary) hypertension Condition: Fair
[2018-09-09] MEDS ORDERED: IOPAMIDOL (ISOVUE-300) 100 ML BTL ONE (01:42)
[2018-09-09] MEDS ORDERED: CIPROFLOXACIN 400 MG/DEXTROSE 200 ML IV ONE (02:40)
[2018-09-09] MEDS ORDERED: ONDANSETRON 4 MG/2 ML VIAL IVP PRN (03:29)
[2018-09-09] MEDS ORDERED: ACETAMINOPHEN 325 MG TAB PO PRN (03:29)
[2018-09-09] MEDS ORDERED: PROMETHAZINE HCL 25 MG TAB PO PRN (03:29)
[2018-09-09] MEDS ORDERED: ONDANSETRON DISINTEGRATING 4 MG TAB PO PRN (03:29)
[2018-09-09] MEDS ORDERED: IBUPROFEN 200 MG TAB PO PRN (03:29)
[2018-09-09] MEDS ORDERED: NS 1,000 ML IV SCH (03:30)
[2018-09-09] MEDS ORDERED: diphenhydrAMINE 25 MG CAP PO PRN (03:43)
--- NOTE | 2018-09-09 04:29 | GHP ---
DATE OF ADMISSION: 09/09/2018 REASON FOR ADMISSION: Left-sided abdominal pain, probable diverticulitis. HISTORY OF PRESENT ILLNESS: The patient had been feeling well until perhaps the last 24 hours or so. She has had some vague left-sided abdominal pain. This became more intense this evening, which tri ggered an emergency room visit. She has not had significant fever, chills, or sweats. Her bowels hoyos ve been somewhat intermittent over the past several weeks. Today she had some difficulty having maria luisa l movement this evening, but she did have a bowel movement earlier today. She denies shortness of br eath or chest pain. No nausea or vomiting. Her pain is intermittent, but she says it is predominant ly left central to left-sided at this moment. She is resting comfortably in the ER [place] at this po int. ALLERGIES: Include gluten and codeine which is unspecified. CURRENT MEDICATIONS: Vitamin D 5000 international units once weekly, trazodone 100 mg h.s., chlortha lidone 12.5 mg daily, lorazepam 0.5 mg p.r.n. anxiety, metformin 500 mg daily, losartan 25 mg b.i.d., Eliquis 5 mg b.i.d., metoprolol ER 50 mg daily, gabapentin 100-200 mg h.s., cholestyramine powder 1- 2 g p.o. b.i.d. p.r.n. diarrhea, levothyroxine 125 mcg daily, Cytomel 5 mcg twice daily. PAST MEDICAL HISTORY: Type 2 diabetes with overall good control, neuropathy, hypothyroid, hypertensi on, diarrhea, restless legs syndrome, hearing loss, mild chronic heart failure without systolic dysfu nction, chronic atrial fibrillation with prior history of CVA, low vision, nocturnal hypoxia with cindy oing nighttime oxygen use. PAST SURGICAL HISTORY: Thyroidectomy, appendectomy, gallbladder, carpal tunnel, bilateral cataracts. SOCIAL HISTORY: Nonsmoker and nondrinker. Lives with her daughter Vonnie who is present today. FAMILY HISTORY: Notable for diverticulitis in both her mother and in her daughter. Mom at 84, history of breast cancer. Father at 77, [place]. He was an active smoker. REVIEW OF SYSTEMS: GENERAL: Low-grade temperature noted in the ER. No specific fever or chills. N o headache. No visual change. Some lightheadedness/dizziness is a chronic challenge. Her daughter notes more difficulty with coughing when she swallows liquids. She has not had shortness of breath o r chest pain. No sense of new palpitations or irregularity to her rhythm. ABDOMEN: As per HPI. GE NITOURINARY: No acute complaints. MUSCULOSKELETAL: Stable. Challenges with walking, right leg weak ness. Prior CVA has contributed to this. She typically uses a walker when she is in the office. SK IN: No recent issues aside from some itching about the right arm/wrist after infusion of Cipro. PHYSICAL EXAM: VITAL SIGNS: Blood pressure 140s over 80s, heart rate low 100s, respiratory rate 18, saturation 94% room air, temperature 36.7. GENERAL: Pleasant, comfortable female, appears her stat ed age. HEENT: Eyes with some sense of low vision gaze. Hearing is mildly diminished. Oropharynx is benign. NECK: Without masses. LUNGS: Clear bilaterally. Dry cough. HEART: Irregularly irreg ular rhythm with preserved rate control, somewhat distant heart sounds. ABDOMEN: Central adiposity. Positive bowel sounds. Soft. There is some left-sided tenderness to deep palpation. No guarding, rebound, or masses. BREASTS/PELVIC: Exams are deferred. MUSCULOSKELETAL: No acute joint erythema , warmth, or swelling. Lower extremities with chronic 1+ edema. The patient is able to ambulate wit h assist. SKIN: Right wrist has some area of excoriation. No hives are otherwise appreciated. DATABASE: White count 11.29, hemoglobin 14.0, platelets 193. Chemistries: Normal electrolytes incl uding creatinine 0.8, glucose 173. Liver functions and pancreatic enzymes are normal. CT haziness, appears to be descending colon region is noted. ASSESSMENT: 1. Left-sided abdominal pain. CT findings showing inflammation consistent with diverticulitis. No evidence of abscess or perforation. We will admit. She has been started on IV Cipro and Flagyl. We will continue this for now. There is some itchiness in the right wrist, which has improved after fl ow rate of Cipro was lessened. No evidence of shortness of breath. We will see how she tolerates th is antibiotic combination. She does not appear in much distress. Anticipate probable discharge home once she is able to prove she can eat, drink, and toilet without much difficulty. 2. Diabetes, long-term. Control has been good. 3. Hypertension, historically controlled. 4. Prior cerebrovascular accident from chronic atrial fibrillation. Continue with her Eliquis 5 mg b.i.d. Will not add further anticoagulant for VTE prevention. We will add stockings and SCDs. /[id number]/MODL
[2018-09-09] MEDS ORDERED: LEVOTHYROXINE 125 MCG TAB PO SCH (06:00)
[2018-09-09] MEDS ORDERED: CHLORTHALIDONE 25 MG TAB PO SCH ×2 (08:19→09:00)
[2018-09-09] MEDS ORDERED: LIOTHYRONINE SODIUM 5 MCG TAB PO SCH (09:00)
[2018-09-09] MEDS ORDERED: APIXABAN 5 MG TAB PO SCH (09:00)
[2018-09-09] MEDS ORDERED: LOSARTAN POTASSIUM 25 MG TAB PO SCH (09:00)
[2018-09-09] MEDS ORDERED: METOPROLOL SUCCINATE XR 25 MG TAB PO SCH ×2 (09:00→10:45)
[2018-09-09 11:50] VITALS: BP 126/86
--- NOTE | 2018-09-09 12:12 | ASMTCMCOM ---
CM Note CM Note Notes: 88yo female admitted for Constipation, L Abd pain. She has a Hx of DM-2, Neuropathy, HTN, Hypothyroid, Restless leg syndrome, [place], CHF, CVA, Chronic Afib, Low Vision, Chronic HS O2 use. Patient is DNR daughter Vonnie is her MPOA. Therapies to eval. CM to follow. Date Signed: 09/09/2018 12:11 PM Electronically Signed By:Olga Massey LCSW
--- NOTE | 2018-09-09 12:59 | SOAPPROG ---
SOAP Progress Note Assessment/Plan: Assessment: Plan: 09/09/18 12:57 diverticulitis--moderate colonic wall thickening, moderate mesenteric stranding , no free air, no abscess. She is doing well. Less pain, no fever, will d/c home on po cipro 500 mg BID and Flagyl 500 TID both for 7 days. Rx has been called by myself to [facility]. Plan discussed with dtr Aida who will pick her up. Subjective: [place] states she is feeling well. She denies pain at rest. She does not trigger any pain by palpating her LLQ today. The itching on her right arm has stopped. No other hives, swelling or shortness of breath. Objective: Vital Signs Temp Pulse Resp BP Pulse Ox 36.6 C 70 16 126/86 H 91 L 09/09/18 11:00 09/09/18 11:00 09/09/18 11:00 09/09/18 11:00 09/09/18 11:00 09/08/18 09/09/18 09/10/18 05:59 05:59 05:59 Intake Total 650 Balance 650 Gen: NAD, pleasant Lungs: CTAB distant BS Heart: irreg irreg with good rate control Abd + bs soft, + LLQ TTP but less prominent than last night LE's with stable mild edema CT report: confirms stability of prior findings + acute diverticulitis ICD10 Worksheet Patient Problems: Problems Problem Status Onset Atrial fibrillation Acute Chronic Disease [facility]/Transitional Care Acute
--- NOTE | 2018-09-09 13:45 | GDS ---
REASON FOR ADMISSION: Left lower sided abdominal pain with suspicion for diverticulitis. DISCHARGE DIAGNOSES: Left lower sided abdominal pain with suspicion for diverticulitis. HOSPITAL COURSE: Patient was admitted through the ER due to development of moderate left lower quadr ant pain. CT of abdomen and pelvis identified mesenteric fat stranding and thickening of the sigmoid colon. No evidence of air or abscess within the abdomen was identified. The patient was started on Cipro and Flagyl IV form, which she has tolerated well. Given reduction in pain no fever or chills, and good family support, she will be discharged home today on oral medications. We will continue Cipro 500 mg b.i.d., Flagyl 500 mg t.i.d. We discussed potential side effects with patient and her daughter who will be taking care of her. Transition medications if these become into lerable. She will be seen later this week for followup. She will continue her regular medicines for blood pressure, blood sugar, heart failure, and hypertension. /[id number]/MODL
[2018-09-09] MEDS ORDERED: CIPROFLOXACIN 400 MG/DEXTROSE 200 ML IV SCH (15:00)
[2018-09-09] MEDS ORDERED: ERGOCALCIFEROL 50,000 I.UNIT CAP PO SCH (18:00)
[2018-09-09] MEDS ORDERED: GABAPENTIN 100 MG CAP PO SCH (21:00)
[2018-09-09] MEDS ORDERED: CYANO/VITAMIN B12 1000 MCG TAB PO SCH (21:00)
[2018-09-09] MEDS ORDERED: traZODone 100 MG TAB PO SCH (21:00)
[2018-09-10] MEDS ORDERED: CHOLECALCIFEROL VIT D3 2,000 UNITS TAB/CAP PO SCH (09:00)
[2018-09-10] MEDS ORDERED: Herbals/Supplements -Info Only PO SCH (09:00)
== END 2018-09-09 14:56 | disposition home or self-care (01) ==
LOC: EDUNIT# → EDBD → F3N 03:20
PROVIDERS: ADMIT Internal Medicine; ATTEND Internal Medicine
DX: R93.3 Abnormal findings on diagnostic imaging of other parts of digestive tract (principal); R10.32 Left lower quadrant pain; K59.00 Constipation, unspecified; I48.2 Chronic atrial fibrillation; I10 Essential (primary) hypertension; E11.9 Type 2 diabetes mellitus without complications; E86.0 Dehydration; Z87.440 Personal history of urinary (tract) infections; Z23 Encounter for immunization; Z79.01 Long term (current) use of anticoagulants
CPT/HCPCS: 74177; 90686; 96365; 99285; G0008; G0378; J0744; Q9967

== ENCOUNTER → 2018-10-20 | Outpatient (CLI) | payer OTHER, BC | LOC: FCPNEURO 20:00 | PROVIDERS: ATTEND Psychiatry & Neurology Sleep Medicine | DX: G47.33 Obstructive sleep apnea (adult) (pediatric) (principal) ==

== ENCOUNTER 2018-11-08 14:17 | Inpatient (IN) | payer OTHER, BC ==
--- NOTE | 2018-11-08 14:40 | EDPHY ---
H & P Time Seen by Provider: 11/08/18 14:18 HPI/ROS: Chief complaint. Fall HPI. A 88-year-old female presents to the emergency department by EMS. She had a mechanical fall 8 days ago. Did not strike her head or lose consciousness. She has developed low back pain. She saw her physician and had normal x-rays of the lumbar spine and pelvis several days ago. She is using tramadol for pain. Continues to have some low back pain. Her family says she has gotten progressively weaker. Denies chest pain or shortness of breath. No abdominal pain however apparently has not had a bowel movement in 3 weeks. She recently has had diverticulitis. No urinary symptoms. ROS 10 systems were reviewed and negative with the exception of the elements mentioned in the history of present illness Past Medical/Surgical History: Past medical history atrial fibrillation on Eliquis, UTI, hypothyroid, appendectomy, diabetes, hypertension, congestive heart failure Social History: , nonsmoker, no alcohol Smoking Status: Never smoked Physical Exam: General Appearance: Alert well-developed female mild distress vital signs are stable Eyes: Pupils equal and round no pallor or injection. ENT, no hemotympanum or Medina sign. No oral pharyngeal or dental trauma Respiratory: There are no retractions, lungs are clear to auscultation. Cardiovascular: Regular rate and rhythm. Gastrointestinal: Abdomen is soft and nontender, no masses, bowel sounds normal. Neurological: Awake and alert, sensory and motor exams grossly normal. Skin: Warm and dry, no rashes. Musculoskeletal: Neck is supple nontender. No T, L, S spine tenderness. Patient shows me some discomfort to the left lower and right lower back. Extremities symmetrical, full range of motion. Psychiatric: Patient is oriented X 3, there is no agitation. Constitutional: Initial Vital Signs Temperature (C) 36.4 C 11/08/18 14:17 Heart Rate 95 11/08/18 14:17 Respiratory Rate 16 11/08/18 14:17 Blood Pressure 137/101 H 11/08/18 14:17 O2 Sat (%) 89 L 11/08/18 14:17 O2 Delivery Mode Room Air Allergies/Adverse Reactions: levothyroxine Allergy (Mild, Verified 09/09/18 01:04) Other-Enter Comments codeine Allergy (Verified 09/09/18 01:04) Unknown gluten Allergy (Verified 09/09/18 01:04) Diarrhea Home Medications: Medication Instructions Recorded Apixaban [Eliquis] 5 mg PO BID 10/28/17 Chlorthalidone [Chlorthalidone 25 12.5 mg PO SUTUTHSA 10/28/17 mg (*)] Ergocalciferol [Vitamin D2 (*)] 50,000 unit PO CHOI@18 10/28/17 Gabapentin [Neurontin 100 MG (*)] 100 mg PO HS 10/28/17 Levothyroxine [Synthroid 125 mcg 125 mcg PO DAILY06 10/28/17 (*)] Liothyronine Sodium [Cytomel 5 mcg 5 mcg PO BID 10/28/17 (*)] metFORMIN HCL [Glucophage 500 mg 500 mg PO DAILY@08 10/28/17 (*)] traZODone [traZODONE 50MG (*)] 100 mg PO HS 10/28/17 Losartan Potassium [Cozaar 50 mg 25 mg PO BID #60 tab 10/30/17 (*)] Acetaminophen [Tylenol 325mg (*)] 650 mg PO Q4HRS PRN tab 09/09/18 Cholecalciferol Vit D3 [Vitamin D3 2,000 units PO DAILY 09/09/18 2000 units tab (OTC)] Ciprofloxacin 400 mg/Dextrose 500 mg PO Q12H 7 Days tab 09/09/18 [Cipro Premix] Cyanocobalamin [Vitamin B12 (*)] 1,000 mcg PO HS 09/09/18 Herbals/Supplements -Info Only 1 ea PO DAILY 09/09/18 Ibuprofen [Motrin (*)] 400 mg PO Q4HRS PRN tab 09/09/18 Metoprolol Succinate Xr [Toprol Xl 25 mg PO DAILY 09/09/18 50 mg (*)] diphenhydrAMINE [Benadryl 25 MG 25 mg PO Q6HRS PRN cap 09/09/18 (*)] Medical Decision Making Procedures: IV normal saline Care Turn Over: care to Dr. Caldwell at 3 pm Departure - Departure Referrals: Patient,NotPresent [Unknown] - As per Instructions
[2018-11-08 15:16] LABS: PLATELET COUNT 206 10^3/uL (150-400)
--- NOTE | 2018-11-08 15:27 | CPEKG ---
Test Reason : OPEN Blood Pressure : / mmHG Vent. Rate : 091 BPM Atrial Rate : 000 BPM P-R Int : 056 ms QRS Dur : 098 ms QT Int : 370 ms P-R-T Axes : 000 -45 017 degrees QTc Int : 456 ms Atrial fibrillation LAD, consider left anterior fascicular block Consider anterior infarct Confirmed by Nir Barnett ([id number]) on 11/08/2018 3:27:08 PM Referred By: Confirmed By:Nir Barnett
[2018-11-08] MEDS ORDERED: IOPAMIDOL (ISOVUE 370) 100 ML BTL IV ONE (15:56)
[2018-11-08] MEDS ORDERED: ONDANSETRON 4 MG/2 ML VIAL IVP PRN (17:53)
[2018-11-08] MEDS ORDERED: ACETAMINOPHEN 325 MG TAB PO PRN (17:53)
[2018-11-08] MEDS ORDERED: ONDANSETRON DISINTEGRATING 4 MG TAB PO PRN (17:53)
--- NOTE | 2018-11-08 18:36 | SOAPPROG ---
SOAP Progress Note Assessment/Plan: Assessment: 88 yo female w/ h/o recent hospitalization for diverticulitis and has a h/o a fib who s/p recent fall about 8 days ago- initially was doing ok, EMS was called and evaluated at home, but then pain continued to progress in lower back area, had xrays neg, today became increasingly difficult for dtr and son in law to take care of her and she is unable to move easily and mostly requiring a wheelchair to get around and so they brought her to the ER. In the ER she had head CT neg for acute pathology, abd CT showing improved diverticulitis (but still present), and new compared to 2 month prior L1 vertebral fracture. -L1 fracture - will get pt/ot, will likely need SNF/rehab on d/c, will ask for IR consultation to see if she is a candidate for cement fixation - will hold eliquis tonight and tomorrow am and let it drift down while awaiting IR consultation and discussed risk/benefit w/ known a fib and largely immobile pt at this time but they would like to explore this option for pain mngt. She is codeine allergic, has tolerated tramadol as outpt will continue. Pain ok w/ holding still but not w/ moving. 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 Plan: 11/08/18 18:26 11/08/18 18:39 Subjective: Doing ok, ready to get to "real" bed out of ER, pain ok at rest. dtr at bedside and very helpful Objective: Vital Signs Temp Pulse Resp BP Pulse Ox 36.4 C 81 18 154/94 H 89 L 11/08/18 14:17 11/08/18 17:30 11/08/18 17:30 11/08/18 17:30 11/08/18 17:30 GEN: legally blind obese female supine on stretcher, pleasant, alert but some cognitive impairment/memory issues noted Heent: legally blind, neck soft supple, good rom, h/o thyroidectomy w/ scar Chest: cta b CV: irreg irreg Abd: TTP in LLQ, decreased bs MSK: ttp over lower back, pain w/ moving legs/changing positions Neuro: CNII-XII intact, alert, appropriate but w some memory loss (chronic not acute) - Pending Discharge Pending Discharge Within 24 Hours: No ICD10 Worksheet Patient Problems: Problems Problem Status Onset Atrial fibrillation Acute Chronic Disease Mgmt/Transitional Care Acute Diverticulitis Acute HTN (hypertension) Acute
[2018-11-08] MEDS ORDERED: MAGNESIUM HYDROXIDE 30 ML UDCUP PO PRN (18:42)
[2018-11-08] MEDS ORDERED: POLYETHYLENE GLYCOL 3350 17 GM PKT PO PRN (18:42)
[2018-11-08] MEDS ORDERED: BISACODYL 10 MG SUPP PR PRN (18:42)
[2018-11-08] MEDS ORDERED: LACTULOSE 20 GM/30 ML UDCUP PO PRN (18:42)
--- NOTE | 2018-11-08 19:36 | GHP ---
DATE OF ADMISSION: 11/08/2018 CHIEF COMPLAINT: Pain. HISTORY OF PRESENT ILLNESS: Patient is an 88-year-old female with a recent admission for diverticuli tis in August, who was doing okay until about 8 days ago she fell at home. She lives with her dajustine hter and son-in-law. They called EMS to evaluate her and she seemed okay at that time, but then as he days went on, she continued to have pain and it seemed to intensify particularly in her lower back to the point where ambulating and moving around, getting up out of bed into a seated or standing pos ition was increasingly difficult, and they were helping her to get around at home by a wheelchair. T he pain got increasingly worse, and she was brought to the ER today for further evaluation. Of note, in the interim, she did have x-rays of her spine, which were negative. Also of note, she has atrial fibrillation on chronic Eliquis. In the ER, she had a head CT done which was negative for any acute changes. Chest x-ray with no evidence of infiltrate or effusion. Stable chest x-ray compared to pr ior. Abdominal CT showed L1 compression fracture, new compared to 2 months prior. No lower lumbar s pine or pelvic fracture, improving but still present sigmoid diverticulitis. Labs show an elevated w virgen count of 12, and a slightly low sodium of 133. She has been treated outpatient with tramadol, w hich helps, but it is the pain with movement that medication does not seem to help her with. PAST MEDICAL HISTORY: Otherwise significant for atrial fibrillation on Eliquis. Type 2 diabetes on metformin. Hypertension. Some cognitive decline/memory loss. A stroke due to atrial fibrillation i n 2010 with mild right-sided residual weakness. 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 History of CHF, insomnia, hypoxemia. SURGICAL HISTORY: Significant for thyroid/laryngeal tumor in 1965, appendectomy 1963, gallbladder 19 , carpal tunnel 2012, and bilateral cataracts with blepharoplasty. FAMILY HISTORY: Father at 77 from an [place]. He was a smoker, had heart disease. Mother at 8 4 of diverticulitis, breast cancer. Has a history of 4 siblings, 1 of possible cancer. Brother with colon cancer, alive. Another brother secondary to motor vehicle accident. o f complications of dementia with prior colon cancer himself and MRSA. SOCIAL HISTORY: She lives with her daughter and son-in-law. She is a nonsmoker and no alcohol. ALLERGIES: She is allergic to codeine and gluten, which gives her diarrhea. MEDICATIONS: Include chlorthalidone 12.5 alternating with 25 p.o. daily, Cytomel 5 mcg p.o. twice da stephanie, Eliquis 5 mg p.o. twice daily, vitamin D 2000 international units daily, trazodone 50-100 mg t.i .d. p.r.n. pain recently added since her fall 8 days ago, metoprolol 25 mg p.o. daily, Cozaar 25 mg p .o. b.i.d., Synthroid 125 p.o. daily, metformin 500 mg p.o. daily, Neurontin 100 mg p.o. a t bedtime, B12 1000 mcg p.o. at bedtime. REVIEW OF SYSTEMS: GENERAL: No change in appetite or recent infections other than a smoldering issu e with diverticulitis. See below. HEENT: Chronic issues with decreased and poor vision. Does see some light, but vision largely decre ased. RESPIRATORY: Denies any shortness of breath, cough, or wheezing. CARDIOVASCULAR: Denies chest pain, palpitations. GI: Has some ongoing discomfort in abdomen. Is unsure when her last bowel movement was. Pain more in left lower quadrant. NEUROLOGIC: History of a CVA with mild right-sided residual affects and cognitive, mild impairment w ith dementia, mild. PSYCHIATRIC: No acute stressors other than the fall with increased pain. PHYSICAL EXAMINATION: VITAL SIGNS: Blood pressure 137/93, heart rate 81, saturating 90 on room air, respiratory rate 77, temperature 37.0. GENERAL: A pleasant female, obese, lying on a stretcher in t he ER with daughter at bedside. She is alert. Some memory issues noted on exam. HEENT: Legally bl ind. NECK: Scar status post history of thyroidectomy. Neck soft and supple otherwise. CHEST: Aries ar to auscultation bilaterally. CARDIOVASCULAR: Irregularly regular. ABDOMEN: She has somewhat de creased bowel sounds with tenderness to palpation left lower quadrant. MUSCULOSKELETAL: She is hesi tant to move as this creates the pain. She has some discomfort in her lower back and with moving leg s and changing positions. NEUROLOGIC: Cranial 2 through 12 grossly intact. She is alert, appropria te, but with some memory loss. PSYCHIATRIC: Affect and mood appropriate. No acute stressors or alice nge in affect. ASSESSMENT AND PLAN: 88-year-old female with a history of recent hospitalization for diverticulitis, history of atrial fibrillation, status post a fall about 8 days ago with increasing discomfort over the past week with x-rays in outpatient setting negative but increased problems with ambulation and b eing able to do anything at home due to pain, was brought into the emergency room and found to have a L1 vertebral fracture, new from prior CT 2 months ago with no evidence of ongoing but improved diver ticulitis as well. Assessment and plan by problem: 1. L1 fracture. Will order physical therapy and occupational therapy. Will likely need skilled [facility] facility versus rehab on discharge as it is too difficult for her to get around at home currentl y and will need strengthening and further rehabilitation. We will ask for an interventional radiolog y consultation to see if she is a possible candidate for cement fixation. I will hold Eliquis tonigh t and tomorrow morning to let it drift down while awaiting interventional radiology consultation and discussion. 2. Discussed with the daughter the risks with known atrial fibrillation, history of prior cerebrovas cular accident, and largely immobile patient of holding anticoagulation. However, drifting down over night while awaiting Interventional Radiology is minimally a risk for her. We will treat with pain m anagement. She has tolerated tramadol as an outpatient. We will continue as needed. Cannot use cod eine as there is a question of a history of allergy to this. 3. Atrial fibrillation. Holding Eliquis tonight and tomorrow morning as discussed above. Will resu me if Interventional Radiology feels she is not a candidate for intervention. 4. Diabetes 2. Check fingersticks. Watch creatinine with metformin and watch if she needs contrast with imaging. 5. Legally blind, stable. Followed by Dr. Clarke. 6. Smoldering diverticulitis. Will place on Cipro, Flagyl. She was on this, and there was question of whether she still was getting Cipro more recently. Has white count of 12. Pain in the left lowe r quadrant with palpation and CT with evidence of ongoing diverticulitis. Also, she is unsure when h er last bowel movement was, and we will make sure to get a good bowel regimen going for her. 7. Disposition. She will likely require more than a 2-midnight stay with increased inability to mov e at home. Will need help with physical therapy, occupational therapy, and likely jail fa cility or rehabilitation. /[id number]/MODL
[2018-11-08] MEDS: traZODone 100 MG TAB PO SCH (20:25)
[2018-11-08] MEDS: CYANO/VITAMIN B12 1000 MCG TAB PO SCH (20:25)
[2018-11-08] MEDS: GABAPENTIN 100 MG CAP PO SCH (20:25)
[2018-11-08] MEDS: traMADol 50 MG TAB PO PRN (20:26)
[2018-11-08] MEDS: CHLORTHALIDONE 25 MG TAB PO SCH (20:27)
[2018-11-08] MEDS: SENNOSIDES/DOCUSATE SODIUM TAB PO SCH (20:27)
[2018-11-08] MEDS: LOSARTAN POTASSIUM 25 MG TAB PO SCH (20:29)
[2018-11-08] MEDS: LIOTHYRONINE SODIUM 5 MCG TAB PO SCH (20:31)
[2018-11-08] MEDS: CIPROFLOXACIN 500 MG TAB PO SCH (20:31)
[2018-11-08] MEDS: metroNIDAZOLE 500 MG TAB PO SCH (23:23)
--- NOTE | 2018-11-09 04:41 | PDMN ---
Medical Necessity Medical necessity: Pt meets INPT criteria per MD as of 11/08/18 and [facility] (est. LOS >2 MN for eval/mgmt of L1 vertebral fracture with increased pain and inability to move s/p fall at home; comorbid afib on anticoagulation, DM, legal blindness, CHF, smoldering diverticulitis; hx CVA).
[2018-11-09 05:03] LABS: PLATELET COUNT 179 10^3/uL (150-400)
[2018-11-09] MEDS: metroNIDAZOLE 500 MG TAB PO SCH ×3 (05:32→21:29)
[2018-11-09] MEDS: LEVOTHYROXINE 125 MCG TAB PO SCH (05:32)
[2018-11-09] MEDS: SENNOSIDES/DOCUSATE SODIUM TAB PO SCH ×2 (09:01→21:29)
[2018-11-09] MEDS: metFORMIN HCL 500 MG TAB PO SCH (09:03)
[2018-11-09] MEDS: traMADol 50 MG TAB PO PRN (09:03)
[2018-11-09] MEDS: METOPROLOL SUCCINATE XR 25 MG TAB PO SCH (09:03)
[2018-11-09] MEDS: LOSARTAN POTASSIUM 25 MG TAB PO SCH ×2 (09:03→21:28)
[2018-11-09] MEDS: CHOLECALCIFEROL VIT D3 2,000 UNITS TAB/CAP PO SCH (09:03)
--- NOTE | 2018-11-09 09:05 | SOAPPROG ---
SOAP Progress Note Assessment/Plan: Assessment: Delightful 88 yo female who fell one week ago resulting in a L1 compression fracture. Pain management as outpt has been a challenge, so family brought her in for pain mgt. She has also been struggling to take care of herself due to the pain and limited mobility as a result of it. Additionally, she has a smoldering case of diverticulitis and was started on cipro/flagyl, though there was a question of whether or not she was actively taking the cipro. Plan: L1 compression fracture - IR consult to discuss whether she is a candidate for cement fixture of the fracture or not. Pain mgt in the mean time. PT/OT to eval and treat. Diverticulitis - cipro/flagyl, white count looks better today already, continue current regimen and follow. Abd is mildly tender to RLQ but overall doing well and good appetite Constipation - encourage bowel regimen, MOM, miralax, colace. + BS on exam and soft nondistended abd Afib - holding eliquis this AM in anticipation of discussion and possible IR intervention. Dr. Robb discussed possible risks vs benefits with pt and family last evening. Reviewed this with dtr, Vonnie, while visiting pt. Overall vitals stable, rate controlled. Dispo - likely needs SNF vs home health depending on possible intervention and pain level following this. PT/OT to eval and make recommendations. 11/09/18 08:59 Subjective: Akosua is resting comfortably in bed this morning, eagerly awaiting her breakfast. She denies any back pain as she hasn't gotten up all evening. She say the pain is not present when she isn't moving. She slept well. Also reports that her abd is not tender. Hasn't had a BM in many days, though. Objective: Vital Signs Temp Pulse Resp BP Pulse Ox 36.4 C 82 16 141/71 H 93 11/09/18 07:59 11/09/18 07:59 11/09/18 07:59 11/09/18 07:59 11/09/18 07:59 Laboratory Results 11/09/18 04:53 11/09/18 04:53 11/08/18 11/09/18 11/10/18 05:59 05:59 05:59 Intake Total 350 Output Total 300 Balance -300 350 Gen- alert, oriented Head- normocephalic, atraumatic CV- irregularly irregular rate and rhythm, rate controlled, no murmurs, rubs, gallops Resp- LCTAB, no wheezing, rhonchi, rales Abd- soft, nondistended, mild TTP over RLQ, +bowel sounds Skin- warm and dry ICD10 Worksheet Patient Problems: Problems Problem Status Onset Atrial fibrillation Acute Chronic Disease Mgmt/Transitional Care Acute Diverticulitis Acute HTN (hypertension) Acute
[2018-11-09] MEDS: LIOTHYRONINE SODIUM 5 MCG TAB PO SCH ×2 (09:38→21:28)
[2018-11-09] MEDS: CIPROFLOXACIN 500 MG TAB PO SCH ×2 (09:38→21:29)
[2018-11-09] MEDS ORDERED: MIDAZOLAM 2 MG/2 ML VIAL IVP PRN (14:20)
[2018-11-09] MEDS ORDERED: ceFAZolin 2 GM/DEXTROSE 100 ML IV ONE (14:20)
[2018-11-09] MEDS ORDERED: GLUCAGON HCL 1 MG VIAL IVP PRN (14:20)
[2018-11-09] MEDS ORDERED: ALTEPLASE 2 MG VIAL IVP PRN (14:20)
[2018-11-09] MEDS ORDERED: MEPERIDINE 25 MG/ML SYR IVP PRN (14:20)
[2018-11-09] MEDS ORDERED: PROTAMINE SULFATE 50 MG/5 ML VIAL IVP PRN (14:20)
[2018-11-09] MEDS ORDERED: DEXAMETHASONE 10 MG/ML VIAL IVP ONE (14:20)
[2018-11-09] MEDS ORDERED: FLUMAZENIL 0.5 MG/5 ML MDV IVP PRN (14:20)
[2018-11-09] MEDS ORDERED: fentaNYL 100 MCG/2 ML INJ IVP PRN ×2 (14:20→17:49)
[2018-11-09] MEDS ORDERED: NS 1,000 ML IV ONE (14:20)
[2018-11-09] MEDS ORDERED: NALOXONE HCL 0.4 MG/ML INJ IVP PRN ×2 (14:20→17:49)
[2018-11-09] MEDS ORDERED: HEPARIN 10,000 UNIT/10 ML MDV (1,000 UNIT/ML) IVP PRN (14:20)
--- NOTE | 2018-11-09 15:06 | ASMTCMCOM ---
CM Note CM Note Notes: Pt in for FTT, back pain, weakness. Pt had fall few days ago and has become increasingly weaker with uncontrolled pain. Pt has caregivers 5 days/wk, resides with dghtr Vonnie. PT/OT rec SNF. Spoke with pt/dghtr who choose [facility], referral sent in [employer] and they can accept. CM to follow. D/c plan of care: [facility] Date Signed: 11/09/2018 03:05 PM Electronically Signed By:SPENCER Alegria
[2018-11-09 15:25] LABS: INR 1.18 (0.83-1.16); PROTIME(PATIENT) 15.2 SEC (12.0-15.0)
--- NOTE | 2018-11-09 16:34 | PDANEPAE ---
ANE History of Present Illness ir kyphoplasty ANE Past Medical History - Cardiovascular History Hx Hypertension: Yes Hx Arrhythmias: Yes Hx Chest Pain: No Hx Coronary Artery / Peripheral Vascular Disease: No Hx CHF / Valvular Disease: Yes Hx Palpitations: No - Pulmonary History Hx COPD: No Hx Asthma/Reactive Airway Disease: No Hx Recent Upper Respiratory Infection: No Hx Oxygen in Use at Home: Yes O2 in Use at Home (L/minute): 2 Hx Sleep Apnea: No Sleep Apnea Screening Result - Last Documented: Positive - Neurologic History Hx Cerebrovascular Accident: Yes Hx Seizures: No Hx Dementia: No - Endocrine History Hx Diabetes: Yes Hypothyroid: No Hyperthyroid: No Obesity: mild - Renal History Hx Renal Disorders: No - Liver History Hx Hepatic Disorders: No - Chronic Pain History Chronic Pain: No ANE Review of Systems Review of Systems: - Exercise capacity Exercise capacity: <4 METS ANE Patient History - Allergies Allergies/Adverse Reactions: levothyroxine Allergy (Mild, Verified 09/09/18 01:04) Other-Enter Comments codeine Allergy (Verified 09/09/18 01:04) Unknown gluten Allergy (Verified 09/09/18 01:04) Diarrhea - Home Medications Home medications: home medication list seen and reviewed Home Medications: Apixaban [Eliquis] 5 mg PO BID 10/28/17 [Last Taken 11/08/18] Chlorthalidone [Chlorthalidone 25 mg (*)] 12.5 mg PO SUTUTHSA 10/28/17 [Last Taken 11/06/18] Ergocalciferol [Vitamin D2 (*)] 50,000 unit PO CHOI@18 10/28/17 [Last Taken ] Gabapentin [Neurontin 100 MG (*)] 100 mg PO 10/28/17 [Last Taken 11/07/18] Levothyroxine [Synthroid 125 mcg (*)] 125 mcg PO DAILY06 10/28/17 [Last Taken ] Liothyronine Sodium [Cytomel 5 mcg (*)] 5 mcg PO BID 10/28/17 [Last Taken ] metFORMIN HCL [Glucophage 500 mg (*)] 500 mg PO DAILY@08 10/28/17 [Last Taken ] traZODone [traZODONE 50MG (*)] 100 mg PO 10/28/17 [Last Taken 11/07/18] Cholecalciferol Vit D3 [Vitamin D3 2000 units tab (OTC)] 2,000 units PO DAILY [Last Taken 11/08/18] Cyanocobalamin [Vitamin B12 (*)] 1,000 mcg PO HS 09/09/18 [Last Taken 11/07/18] Herbals/Supplements -Info Only 1 ea PO DAILY 09/09/18 [Last Taken Unknown] Metoprolol Succinate Xr [Toprol Xl 50 mg (*)] 25 mg PO DAILY 09/09/18 [Last Taken 11/08/18] traMADol HCL [Tramadol HCl] 50 mg PO BID 11/08/18 [Last Taken 11/08/18] - NPO status NPO Status: no food or drink >8 hours - Anes Hx Anes Hx: no prior problems - Smoking Hx Smoking Status: Never smoked ANE Labs/Vital Signs - Labs Result Diagrams: 11/09/18 04:53 11/09/18 04:53 - Vital Signs Blood Pressure: 117/82 Heart Rate: 94 Respiratory Rate: 18 O2 Sat (%): 96 Height: 162.56 cm Weight: 94.347 kg ANE Physical Exam - Airway Mallampati Score: Class 2 Mouth exam: normal dental/mouth exam - Pulmonary Pulmonary: no respiratory distress - Cardiovascular Cardiovascular: irregularly irregular - ASA Status ASA Status: III ANE Anesthesia Plan Anesthesia Plan: MAC
[2018-11-09] MEDS ORDERED: MIDAZOLAM 2 MG/2 ML VIAL ONE (16:56)
[2018-11-09] MEDS ORDERED: DEXMEDETOMIDINE HCL 400 MCG in NS 100 ML IV ONE (17:00)
[2018-11-09] MEDS ORDERED: DEXAMETHASONE 10 MG/ML VIAL ONE (17:07)
[2018-11-09] MEDS ORDERED: PHENYLEPHRINE HCL 100 MCG/ML SYR ONE (17:17)
[2018-11-09] MEDS ORDERED: LIDOCAINE 1% 300 MG/30 ML SDV ONE (17:20)
[2018-11-09] MEDS ORDERED: BUPIVACAINE 0.5% 30 ML SDV ONE (17:20)
[2018-11-09] MEDS ORDERED: fentaNYL 100 MCG/2 ML INJ ONE (17:25)
--- NOTE | 2018-11-09 17:41 | PDRADPN ---
Radiology Procedure Note Date of Procedure: 11/09/18 Radiologist: Carrie Ruiz Anesthesia: IV Sedation Pre-op Diagnosis: L1 fracture Post-op Diagnosis: same Indication: Severe pain Procedure: L1 kyphoplasty Inf/Abcess present in the surg proc area at time of surgery?: No
[2018-11-09] MEDS ORDERED: ONDANSETRON 4 MG/2 ML VIAL IVP PRN (17:49)
[2018-11-09] MEDS ORDERED: ALBUTEROL 3 ML DEYVIAL IH PRN (17:49)
--- NOTE | 2018-11-09 17:49 | POSTANESTH ---
Post Anesthetic Evaluation Cardiovascular Status: Normal, Stable Respiratory Status: Normal, Stable Level of Consciousness/Mental Status: Mildly Sleepy, Arousable Pain Control: Adequate, Prn Tx Ordered Nausea/Vomiting Control: Adequate, Prn Tx Ordered Complications Possibly Related to Anesthesia: None Noted
[2018-11-09] MEDS ORDERED: ePHEDrine SULFATE 25 MG/5 ML SYR IVP ONE (18:30)
[2018-11-09] MEDS: traZODone 100 MG TAB PO SCH (21:29)
[2018-11-09] MEDS: CYANO/VITAMIN B12 1000 MCG TAB PO SCH (21:29)
[2018-11-09] MEDS: GABAPENTIN 100 MG CAP PO SCH (21:29)
[2018-11-10] MEDS: LEVOTHYROXINE 125 MCG TAB PO SCH (05:32)
[2018-11-10] MEDS: metroNIDAZOLE 500 MG TAB PO SCH ×3 (05:32→21:26)
[2018-11-10] MEDS: SENNOSIDES/DOCUSATE SODIUM TAB PO SCH ×2 (09:17→21:10)
[2018-11-10] MEDS: LOSARTAN POTASSIUM 25 MG TAB PO SCH ×2 (09:17→21:10)
[2018-11-10] MEDS: METOPROLOL SUCCINATE XR 25 MG TAB PO SCH (09:17)
[2018-11-10] MEDS: CHOLECALCIFEROL VIT D3 2,000 UNITS TAB/CAP PO SCH (09:18)
[2018-11-10] MEDS: LIOTHYRONINE SODIUM 5 MCG TAB PO SCH ×2 (09:18→21:08)
[2018-11-10] MEDS: metFORMIN HCL 500 MG TAB PO SCH (09:18)
[2018-11-10] MEDS: CIPROFLOXACIN 500 MG TAB PO SCH ×2 (09:22→21:10)
[2018-11-10] MEDS: traMADol 50 MG TAB PO PRN ×2 (09:25→15:18)
--- NOTE | 2018-11-10 09:42 | SOAPPROG ---
SOAP Progress Note Assessment/Plan: Assessment: Delightful 88 yo female who fell one week ago resulting in a L1 compression fracture. Pain management as outpt has been a challenge, so family brought her in for pain mgt. She has also been struggling to take care of herself due to the pain and limited mobility as a result of it. Additionally, she has a smoldering case of diverticulitis and was started on cipro/flagyl, though there was a question of whether or not she was actively taking the cipro. Plan: L1 compression fracture - IR consult to discuss whether she is a candidate for cement fixture of the fracture or not. Pain mgt in the mean time. PT/OT to eval and treat. Diverticulitis - cipro/flagyl, white count looks better today already, continue current regimen and follow. Abd is mildly tender to RLQ but overall doing well and good appetite Constipation - encourage bowel regimen, MOM, miralax, colace. + BS on exam and soft nondistended abd Afib - holding eliquis this AM in anticipation of discussion and possible IR intervention. Dr. Robb discussed possible risks vs benefits with pt and family last evening. Reviewed this with dtr, Vonnie, while visiting pt. Overall vitals stable, rate controlled. Dispo - likely needs SNF vs home health depending on possible intervention and pain level following this. PT/OT to eval and make recommendations. 11/09/18 08:59 L1 compression fracture- cement fixture of fracture yesterday with Dr. Ruiz, overall looking and feeling better. Up with PT/OT/nursing staff today and hopefully d/c to SNF tomorrow if pain well controlled Diverticulitis- cipro/flagyl, no abd pain this AM, good appetite, afebrile Constipation- had one small BM this AM, RN to give miralax today but has sensitive bowels so will use caution with bowel regimen to avoid diarrhea Afib- resume eliquis, rate controlled Dispo- hopefully SNF tomorrow if pain well controlled and moving okay with assistance 11/10/18 09:40 Subjective: Akosua is resting in bed this morning eating breakfast. Still having some back pain which is well managed with pain meds, but overall is feeling much better. Daughter, Vonnie, is at bedside. Objective: Vital Signs Temp Pulse Resp BP Pulse Ox 36.3 C 93 16 110/62 95 11/10/18 08:00 11/10/18 09:17 11/10/18 08:00 11/10/18 09:17 11/10/18 08:00 Laboratory Results 11/09/18 04:53 11/09/18 04:53 11/09/18 11/10/18 11/11/18 05:59 05:59 05:59 Intake Total 500 Output Total 300 400 Balance -300 100 PT 15.2 SEC (12.0-15.0) H 11/09/18 14:50 INR 1.18 (0.83-1.16) H 11/09/18 14:50 Gen- alert, oriented Head- normocephalic, atraumatic CV- irregularly irregular rate and rhythm, rate controlled, no murmurs, rubs, gallops Resp- LCTAB, no wheezing, rhonchi, rales Abd- SNT, non distended, + BS Back- small gauze dressing to midback CDI Extremities- + pulses Skin- warm and dry ICD10 Worksheet Patient Problems: Problems Problem Status Onset Atrial fibrillation Acute Chronic Disease Mgmt/Transitional Care Acute Diverticulitis Acute HTN (hypertension) Acute
[2018-11-10] MEDS: APIXABAN 5 MG TAB PO SCH ×2 (10:42→21:10)
--- NOTE | 2018-11-10 11:02 | ASMTCMCOM ---
CM Note CM Note Notes: CM spoke with hospitalist. It is expected that pt will be d/remy tomorrow or Monday. [facility]idi sent updated records. D/C Plan: [facility] Date Signed: 11/10/2018 11:01 AM Electronically Signed By:Terrie Cunningham
[2018-11-10] MEDS: CHLORTHALIDONE 25 MG TAB PO SCH (18:39)
[2018-11-10] MEDS: CYANO/VITAMIN B12 1000 MCG TAB PO SCH (21:11)
[2018-11-10] MEDS: GABAPENTIN 100 MG CAP PO SCH (21:11)
[2018-11-10] MEDS: traZODone 100 MG TAB PO SCH (21:11)
[2018-11-11] MEDS: LEVOTHYROXINE 125 MCG TAB PO SCH (05:34)
[2018-11-11] MEDS: metroNIDAZOLE 500 MG TAB PO SCH ×3 (05:34→22:05)
[2018-11-11] MEDS: metFORMIN HCL 500 MG TAB PO SCH (08:18)
[2018-11-11] MEDS: APIXABAN 5 MG TAB PO SCH ×2 (08:18→22:07)
[2018-11-11] MEDS: CHOLECALCIFEROL VIT D3 2,000 UNITS TAB/CAP PO SCH (08:18)
[2018-11-11] MEDS: LIOTHYRONINE SODIUM 5 MCG TAB PO SCH ×2 (08:18→22:06)
[2018-11-11] MEDS: SENNOSIDES/DOCUSATE SODIUM TAB PO SCH ×2 (08:19→22:05)
[2018-11-11] MEDS: METOPROLOL SUCCINATE XR 25 MG TAB PO SCH (08:24)
[2018-11-11] MEDS: LOSARTAN POTASSIUM 25 MG TAB PO SCH ×2 (08:25→22:06)
[2018-11-11] MEDS: CIPROFLOXACIN 500 MG TAB PO SCH ×2 (10:05→22:06)
[2018-11-11] MEDS: traMADol 50 MG TAB PO PRN (10:07)
--- NOTE | 2018-11-11 10:29 | SOAPPROG ---
SOAP Progress Note Assessment/Plan: Assessment: Delightful 88 yo female who fell one week ago resulting in a L1 compression fracture. Pain management as outpt has been a challenge, so family brought her in for pain mgt. She has also been struggling to take care of herself due to the pain and limited mobility as a result of it. Additionally, she has a smoldering case of diverticulitis and was started on cipro/flagyl, though there was a question of whether or not she was actively taking the cipro. Plan: L1 compression fracture- cement fixture of fracture Monday with Dr. Ruiz. Still with some pain, mostly to L side. Wonder if this is due to fracture vs constipation vs deconditioning. PT/OT today, hopefully rehab tomorrow. Diverticulitis- cipro/flagyl, no abd pain this AM, good appetite, afebrile. Will recheck labs today to make sure its still moving in the right direction. Constipation- MOM today, had one small BM yesterday but suspect that she is still pretty constipated which could be contributing to her pain Afib- eliquis, rate controlled Dispo- hopefully SNF tomorrow if pain well controlled and moving okay with assistance 11/11/18 10:25 Subjective: Akosua is up in the chair this AM, c/o L sided low back pain but pain meds are helping with it. Eating well. Still feeling constipated. Objective: Vital Signs Temp Pulse Resp BP Pulse Ox 36.4 C 76 16 102/54 L 98 11/11/18 07:47 11/11/18 07:47 11/11/18 07:47 11/11/18 08:25 11/11/18 07:47 Laboratory Results 11/09/18 04:53 11/09/18 04:53 11/10/18 11/11/18 11/12/18 05:59 05:59 05:59 Intake Total 500 700 Output Total 400 250 Balance 100 450 PT 15.2 SEC (12.0-15.0) H 11/09/18 14:50 INR 1.18 (0.83-1.16) H 11/09/18 14:50 Gen- alert, oriented Head- normocephalic, atraumatic CV- irregularly irregular rate and rhythm, rate controlled, no murmurs, rubs, gallops Resp- LCTAB, no wheezing, rhonchi, rales Abd- mild LLQ TTP, nondistended, + BS Skin- warm and dry Back- gauze dressing to low midback CDI ICD10 Worksheet Patient Problems: Problems Problem Status Onset Atrial fibrillation Acute Chronic Disease Mgmt/Transitional Care Acute Diverticulitis Acute HTN (hypertension) Acute
[2018-11-11 11:23] LABS: PLATELET COUNT 228 10^3/uL (150-400)
[2018-11-11] MEDS ORDERED: ERGOCALCIFEROL 50,000 I.UNIT CAP PO SCH (18:00)
[2018-11-11] MEDS ORDERED: CALCIUM CARBONATE 500 MG CHEWABLE TAB PO PRN (19:48)
[2018-11-11] MEDS ORDERED: FAMOTIDINE 20 MG TAB PO PRN (19:48)
[2018-11-11] MEDS: CYANO/VITAMIN B12 1000 MCG TAB PO SCH (22:05)
[2018-11-11] MEDS: GABAPENTIN 100 MG CAP PO SCH (22:07)
[2018-11-11] MEDS: traZODone 100 MG TAB PO SCH (22:09)
[2018-11-11] MEDS: CHLORTHALIDONE 25 MG TAB PO SCH (23:26)
[2018-11-12] MEDS: metroNIDAZOLE 500 MG TAB PO SCH (05:23)
[2018-11-12] MEDS: LEVOTHYROXINE 125 MCG TAB PO SCH (05:24)
[2018-11-12 07:32] VITALS: BP 124/78
[2018-11-12] MEDS: metFORMIN HCL 500 MG TAB PO SCH (08:00)
[2018-11-12] MEDS: METOPROLOL SUCCINATE XR 25 MG TAB PO SCH (08:01)
[2018-11-12] MEDS: LOSARTAN POTASSIUM 25 MG TAB PO SCH (08:05)
[2018-11-12] MEDS: APIXABAN 5 MG TAB PO SCH (08:06)
[2018-11-12] MEDS: SENNOSIDES/DOCUSATE SODIUM TAB PO SCH (08:06)
[2018-11-12] MEDS: LIOTHYRONINE SODIUM 5 MCG TAB PO SCH (08:06)
[2018-11-12] MEDS: traMADol 50 MG TAB PO PRN (08:07)
--- NOTE | 2018-11-12 09:01 | SOAPPROG ---
SOAP Progress Note Assessment/Plan: Assessment: Plan: 11/12/18 09:00 L1 compression fx, pain better after kyphoplasty--to SNF RLE weakness acute on chronic challenge (prior CVA) DM-stable a fib-rate controlled, continue DOAC diverticulitis--will complete a 10 day course of cipro and flaygl Subjective: Loren feels great. No complaints. Ready for [facility] Objective: Vital Signs Temp Pulse Resp BP Pulse Ox 36.8 C 105 H 14 124/78 H 97 11/12/18 07:31 11/12/18 08:01 11/12/18 07:31 11/12/18 08:05 11/12/18 07:31 Laboratory Results 11/11/18 10:44 11/11/18 10:44 11/11/18 11/12/18 11/13/18 05:59 05:59 05:59 Intake Total 700 1630 Output Total 250 150 Balance 450 1480 PT 15.2 SEC (12.0-15.0) H 11/09/18 14:50 INR 1.18 (0.83-1.16) H 11/09/18 14:50 Gen: NAD Lungs: minimal crackle left base (stable) Heart: irreg irreg with rate control (stable) Abd + bs soft, mild-mod LLQ TTP LE's no edema labs stable ICD10 Worksheet Patient Problems: Problems Problem Status Onset Atrial fibrillation Acute Chronic Disease [facility]/Transitional Care Acute Diverticulitis Acute HTN (hypertension) Acute
--- NOTE | 2018-11-12 09:06 | PDIAF ---
- Diagnosis Diagnosis: l1 compression fx, LLQ diverticulitis Code Status: Full Code - Medication Management [employer] Antibiotics: cipro 500 mg BID, flagyl 500 mg TID [employer] Antibiotic Stop Date: 11/18/18 Discharge Medications: electronically signed and located in the Home Medication List. PICC Care - Routine: N/A - Orders Services needed: Registered Nurse, Physical Therapy, Occupational Therapy Isolation Type: None Diet Recommendation: no restrictions on diet Diet Texture: Regular Texture Diet Tube feeding: n/a Weigh Patient: weekly Guajardo: No - Follow Up Care Current Providers and Referrals: Patient,NotPresent [Unknown] - As per Instructions
[2018-11-12] MEDS: CIPROFLOXACIN 500 MG TAB PO SCH (11:21)
[2018-11-12] MEDS: CHOLECALCIFEROL VIT D3 2,000 UNITS TAB/CAP PO SCH (11:21)
--- NOTE | 2018-11-12 11:52 | GDS ---
DISPOSITION: Transition to alf facility 11/12/2018. REASON FOR ADMISSION: Progressive back pain, abdominal pain. DISCHARGE DIAGNOSES: 1. Progressive back pain linked to L1 compression fracture, improved with kyphoplasty performed by Delisa Ruiz. She still has residual weakness, which will require some rehab therapy. 2. Smoldering diverticulitis with left lower quadrant tenderness. She has started on Cipro and Flag yl with good tolerance and minimization of her symptoms. We will complete a 10 day course. She has a history of this in the not too distant past and did respond to the similar combination antibiotics without side effects or difficulties. 3. Diabetes, stable. 4. Prior cerebrovascular accident with right leg weakness. This will make rehab somewhat a bit more complicated, but is stable finding. 5. Atrial fibrillation on chronic anticoagulation therapy with good rate control. No changes in thi s. Observation. 6. Visual limitations, stable challenge. 7. Hearing limitations also stable. 8. Patient is, otherwise, improving and is eager to begin rehab. /[id number]/MODL
--- NOTE | 2018-11-12 13:38 | ASDISCHSUM ---
Discharge Information Plan Status:SNF Medically Cleared to Leave: Discharge Date:11/12/2018 11:45 AM CM D/C Disposition: ADT D/C Disposition:Shelter Facility Projected Discharge Date:11/11/2018 11:00 AM Transportation at D/C: Discharge Delay Reason: Follow-Up Date:11/11/2018 11:00 AM Discharge Slot: Final Diagnosis: Placement Information Referral Type:*Penitentiary/SNF Referral ID:[id number] Provider Name:[facility] Address 1:[address] Address 2: City:[place] Selection Factors: State:[place] Patient Contact Information Contact Name:KALIE Relationship:Daughter Address: Work Phone: City: [facility] Phone: [facility] Code: Email: Financial Information Financial Class:Medicare Primary Plan Desc:MEDICARE INPATIENT Primary Plan Number:[id number] Secondary Plan Desc:studdex [facility] Secondary Plan Number:[id number] Assessment Information LACE LACE Length of stay for Answers: 4-6 days current admission Acuity / Level of Answers: Yes Care: Did the patient have an inpatient admission? Comorbidities - select Answers: Congestive heart failure all that apply Diabetes (uncontrolled or controlled) Other Notes: AFib; Hypothyroid; HTN # of Emergency department Answers: 1-2 visits in the last 6 months Score: 12 Date Signed: 11/12/2018 01:37 PM Electronically Signed By:SPENCER Alegria [facility] CM Progress Note CM Note CM Note Notes: Pt in for FTT, back pain, weakness. Pt had fall few days ago and has become increasingly weaker with uncontrolled pain. Pt has caregivers 5 days/wk, resides with dghtr Vonnie. PT/OT rec SNF. Spoke with pt/dghtr who choose [facility], referral sent in Allscripts and they can accept. CM to follow. D/c plan of care: [facility] Date Signed: 11/09/2018 03:05 PM Electronically Signed By:SPENCER Alegria [facility] CM Progress Note CM Note CM Note Notes: CM spoke with hospitalist. It is expected that pt will be d/remy tomorrow or Monday. [facility] sent updated records. D/C Plan: [facility] Date Signed: 11/10/2018 11:01 AM Electronically Signed By:Terrie Cunningham [facility] CM Progress Note CM Note CM Note Notes: Pt medically stable for d/c to [facility]. Julia in admissions scheduled wc transport for 1130. CELESTE Chisholm called report. Pt dghtr present at bedside and is updated. Orders sent in Allscripts. Date Signed: 11/12/2018 01:38 PM Electronically Signed By:SPENCER Alegria Intervention Information Intervention Type:*Incorrect Registration Date of Service:11/09/2018 04:27 AM Patient Type:Observation Staff Member:CELESTE Lowry, Azucena Hours: Discipline: Severity: Comment: Intervention Type:*IM-Signed Date of Service:11/12/2018 11:11 AM Patient Type:Inpatient Staff Member:Rosaura Stuart Hours: Discipline: Severity: Comment:
--- NOTE | 2018-11-12 13:38 | ASMTCMCOM ---
CM Note CM Note Notes: Pt medically stable for d/c to [facility] SNF. Julia in admissions scheduled wc transport for 1130. RN Kathrine called report. Pt dghtr present at bedside and is updated. Orders sent in Allscripts. Date Signed: 11/12/2018 01:38 PM Electronically Signed By:SPENCER Alegria
== END 2018-11-12 11:45 | DRG 516 ==
LOC: EDUNIT# → OBSVTOIN 17:21 → F3N 18:39
PROVIDERS: ADMIT Nurse Practitioner Family; ATTEND Nurse Practitioner Family
PROC: 0QU03JZ Supplement Lumbar Vertebra with Synthetic Substitute, Percutaneous Approach (ICD-10-PCS; principal; 2018-11-08)
DX: M48.56XA Collapsed vertebra, not elsewhere classified, lumbar region, initial encounter for fracture (principal); K57.32 Diverticulitis of large intestine without perforation or abscess without bleeding; I69.351 Hemiplegia and hemiparesis following cerebral infarction affecting right dominant side; E11.9 Type 2 diabetes mellitus without complications; I48.91 Unspecified atrial fibrillation; E03.9 Hypothyroidism, unspecified; I10 Essential (primary) hypertension; H54.8 Legal blindness, as defined in USA; Z79.01 Long term (current) use of anticoagulants; Z79.84 Long term (current) use of oral hypoglycemic drugs
CPT/HCPCS: 84484-ER; 97110-GP; 97116-GP; 97162-GP; 97166-GO; 97530-GP; 97535-GO; J0690; J1100; J2250; J2370; J3010; Q9967

== ENCOUNTER 2018-12-09 02:03 | Inpatient (IN) | payer OTHER, BC ==
--- NOTE | 2018-12-09 02:40 | EDPHY ---
H & P Stated Complaint: slipped off the bed Time Seen by Provider: 12/09/18 02:06 HPI/ROS: HPI The patient presents with fall which occurred just prior to arrival, brought in by ambulance. The patient was walking back from her bathroom to her bedroom and was trying to sit down on her bed, however missed the bed and landed on the carpeted ground, hitting her head. As she was unable to get up by herself and 911 was called. Paramedics transported her here. She was just released from [facility] yesterday back to her house, where she lives with her daughter and son-in-law. She is recovering from an L1 compression fracture status post kyphoplasty. She has baseline lower extremity weakness right greater than left from a prior CVA. She uses a walker at most times though is not using it tonight because the bedroom cannot accommodate it and uses a wheelchair when she is out. Her daughter reports that she is 50-60% weaker than her usual and is not doing well at home. She feels she was released from rehab prematurely and would like her to be readmitted. REVIEW OF SYSTEMS 10 systems were reviewed and negative with the exception of the elements mentioned in the history of present illness. PMHx: Recent L1 compression fracture as above, atrial fibrillation on Eliquis, history of CVA with right leg weakness Soc Hx: Lives at home with her daughter PHYSICAL General Appearance: Alert, no distress Eyes: Pupils equal and round no pallor or injection ENT, Mouth: Mucous membranes moist Respiratory: There are no retractions, lungs are clear to auscultation Cardiovascular: Regular rate and rhythm Gastrointestinal: Abdomen is soft and non-tender, no masses, bowel sounds normal Neurological: A&O, moves all extremities Skin: Warm and dry, no rashes Musculoskeletal: Neck is supple non tender Extremities: symmetrical, full range of motion Psychiatric: Patient is oriented X 3, there is no agitation Source: Patient, Family, EMS, Old records Exam Limitations: No limitations - Personal History Current Tetanus/Diphtheria Vaccine: Yes Current Tetanus Diphtheria and Acellular Pertussis (TDAP): Yes - Medical/Surgical History Hx Asthma: No Hx Chronic Respiratory Disease: No Hx Diabetes: Yes Hx Cardiac Disease: No Hx Renal Disease: No Hx Cirrhosis: No Hx Alcoholism: No Hx HIV/AIDS: No Hx Splenectomy or Spleen Trauma: No Other PMH: a-fib, UTI, thyroid out, appy, DM, HTN, CHF. - Social History Smoking Status: Never smoked Constitutional: Initial Vital Signs Temperature (C) 36.4 C 12/09/18 02:05 Heart Rate 95 12/09/18 02:05 Respiratory Rate 16 12/09/18 02:05 Blood Pressure 150/105 H 12/09/18 02:05 O2 Sat (%) 95 12/09/18 02:05 O2 Delivery Mode Room Air Allergies/Adverse Reactions: levothyroxine Allergy (Mild, Verified 09/09/18 01:04) Other-Enter Comments codeine Allergy (Verified 09/09/18 01:04) Unknown gluten Allergy (Verified 09/09/18 01:04) Diarrhea Home Medications: Medication Instructions Recorded Apixaban [Eliquis] 5 mg PO BID 10/28/17 Chlorthalidone [Chlorthalidone 25 12.5 mg PO SUTUTHSA 10/28/17 mg (*)] Ergocalciferol [Vitamin D2 (*)] 50,000 unit PO CHOI@18 10/28/17 Levothyroxine [Synthroid 125 mcg 125 mcg PO DAILY06 10/28/17 (*)] Liothyronine Sodium [Cytomel 5 mcg 5 mcg PO BID 10/28/17 (*)] metFORMIN HCL [Glucophage 500 mg 500 mg PO DAILY@08 10/28/17 (*)] traZODone [traZODONE 50MG (*)] 100 mg PO HS 10/28/17 Losartan Potassium [Cozaar 50 mg 25 mg PO BID #60 tab 10/30/17 (*)] Cyanocobalamin [Vitamin B12 (*)] 1,000 mcg PO HS 09/09/18 Metoprolol Succinate Xr [Toprol Xl 25 mg PO DAILY 09/09/18 50 mg (*)] Medical Decision Making - Diagnostics Imaging Results: CT head without contrast is performed and unremarkable Differential Diagnosis: 88-year-old female who presents with fall at home, brought in by ambulance, here she does not have any complaints. However because she hit her head when she fell and is on Eliquis, I will perform CT scan of her head. Daughter is very concerned about taking her home as she is quite weak and has not regained her strength, there is concerned that she will fall again. CT scan is unremarkable. Plan to admit the patient to the hospital for hopeful transfer to rehab. I discussed the case with Dr. Phoenix Nicolas who requests admission to the hospitalist. Thus, I contacted Dr. Rodarte who will admit the patient overnight. The patient's family is updated on the plan. Departure - Departure Disposition: [facility] Inpatient Acute Clinical Impression: Weakness Fall from standing Qualifiers: Encounter type: initial encounter Qualified Code(s): W19.XXXA - Unspecified fall, initial encounter HTN (hypertension) Qualifiers: Hypertension type: essential hypertension Qualified Code(s): I10 - Essential ( primary) hypertension Condition: Fair
[2018-12-09] MEDS ORDERED: ONDANSETRON DISINTEGRATING 4 MG TAB PO PRN (03:39)
[2018-12-09] MEDS ORDERED: ONDANSETRON 4 MG/2 ML VIAL IVP PRN (03:39)
[2018-12-09] MEDS ORDERED: ACETAMINOPHEN 325 MG TAB PO PRN (03:39)
--- NOTE | 2018-12-09 04:00 | PDGENHP ---
History and Physical - Chief Complaint Fall - History of Present Illness 88 yo F w/ hx of AF on Eliquis, CVA, NIDDM and recent admission for fall and lumbar fracture presents after a fall. The patient was admitted here from -11/14/18 for management of fall and L1 compression fracture. During that admission she was treated with a kyphoplasty. She was discharged to SNF for rehabilitation and returned home yesterday. She had a fairly routine evening but tonight experienced a fall after returning from the bathroom. She denies significant trauma and has no complaints at the moment. She lives with her daughter and son in law, who are at bedside. They feel she is weaker than she was previously and do not think she can function at home in her current state. They state that she is at her cognitive baseline. Case discussed with ED physician Dr. Uribe; records reviewed and summarized above. History Information - Allergies/Home Medication List Allergies/Adverse Reactions: levothyroxine Allergy (Mild, Verified 09/09/18 01:04) Other-Enter Comments codeine Allergy (Verified 09/09/18 01:04) Unknown gluten Allergy (Verified 09/09/18 01:04) Diarrhea Home Medications: Apixaban [Eliquis] 5 mg PO BID 10/28/17 [Last Taken 11/08/18] Chlorthalidone [Chlorthalidone 25 mg (*)] 12.5 mg PO SUTUTHSA 10/28/17 [Last Taken 11/06/18] Ergocalciferol [Vitamin D2 (*)] 50,000 unit PO CHOI@10/28/17 [Last Taken ] Levothyroxine [Synthroid 125 mcg (*)] 125 mcg PO DAILY06 10/28/17 [Last Taken ] Liothyronine Sodium [Cytomel 5 mcg (*)] 5 mcg PO BID 10/28/17 [Last Taken ] metFORMIN HCL [Glucophage 500 mg (*)] 500 mg PO DAILY@08 10/28/17 [Last Taken ] traZODone [traZODONE 50MG (*)] 100 mg PO HS 10/28/17 [Last Taken 11/07/18] Cyanocobalamin [Vitamin B12 (*)] 1,000 mcg PO HS 09/09/18 [Last Taken 11/07/18] Metoprolol Succinate Xr [Toprol Xl 50 mg (*)] 25 mg PO DAILY 09/09/18 [Last Taken 11/08/18] I have personally reviewed and updated: family history, medical history - Past Medical History atrial fibrillation, CVA, diabetes type 2 - Surgical History Reports: appendectomy, cholecystectomy - Family History Positive for: cancer, CAD - Social History Smoking Status: Never smoked Review of Systems Review of Systems: ROS: 10pt was reviewed & negative except for what was stated in HPI & below Physical Exam Physical Exam: Temp Pulse Resp BP Pulse Ox 36.4 C 95 16 150/105 H 95 12/09/18 02:05 12/09/18 02:05 12/09/18 02:05 12/09/18 02:05 12/09/18 02:05 Constitutional: no apparent distress, appears nourished Eyes: anicteric sclera, other (Blind) Ears, Nose, Mouth, Throat: moist mucous membranes, no oral mucosal ulcers Cardiovascular: systolic murmur, irregularly irregular Respiratory: no respiratory distress, clear to auscultation Gastrointestinal: normoactive bowel sounds, soft, non-tender abdomen Skin: warm, normal color Musculoskeletal: no muscle tenderness, other (Chronic LLE swelling) Psychiatric: interacting appropriately, not anxious Lab Data & Imaging Review 12/09/18 03:45 WBC REJ 12/09/18 03:45 RBC REJ 12/09/18 03:45 Hgb REJ 12/09/18 03:45 Hct REJ 12/09/18 03:45 MCV REJ 12/09/18 03:45 MCH REJ 12/09/18 03:45 MCHC REJ 12/09/18 03:45 RDW REJ 12/09/18 03:45 Plt Count REJ 12/09/18 03:45 MPV REJ 12/09/18 03:45 Neut % (Auto) REJ 12/09/18 03:45 Lymph % (Auto) REJ 12/09/18 03:45 [place] % (Auto) REJ 12/09/18 03:45 Eos % (Auto) REJ 12/09/18 03:45 Baso % (Auto) REJ 12/09/18 03:45 Nucleat RBC Rel Count REJ 12/09/18 03:45 Absolute Neuts (auto) REJ 12/09/18 03:45 Absolute Lymphs (auto) REJ 12/09/18 03:45 Absolute Monos (auto) REJ 12/09/18 03:45 Absolute Eos (auto) REJ 12/09/18 03:45 Absolute Basos (auto) REJ 12/09/18 03:45 Absolute Nucleated RBC REJ 12/09/18 03:45 Immature Gran % REJ 12/09/18 03:45 Immature Gran # REJ 12/09/18 03:45 Assessment & Plan Assessment: 88 yo F w/ hx of AF on Eliquis, CVA, NIDDM and recent admission for fall and lumbar fracture presents after a fall. Plan: 1. Fall - Likely multifactorial from deconditioning and effects of prior CVA and poor vision. She denies significant trauma. CTH (personally reviewed/ interpreted) without acute findings. Her children do not feel she is safe at home with her current level of mobility. - Admit for observation - PT/OT evaluations - CM consult placed to evaluate for return to SNF 2. AF - On Apixaban for anticoagulation 3. NIDDM - On metformin as outpatient 4. Hx prior CVA 5. HTN 6. Legally blind *Home med rec pending reconciliation, awaiting pharmacist review Diet - Regular Code - Full Ppx - Apixaban Dispo - Admit under observation status
[2018-12-09 04:28] LABS: PLATELET COUNT 178 10^3/uL (150-400)
--- NOTE | 2018-12-09 10:20 | ASMTCMCOM ---
CM Note CM Note Notes: Chart reviewed for discharge planning purposes. Patient dc'd from [facility] to [facility] rehab in October. She was released from [facility] yesterday. History is significant for multiple falls, afib, diabetes and previous CVA. Patient is also legally blind. The family wishes for her to return to rehab. Referral via allscripts. Plan: To [facility] Date Signed: 12/09/2018 10:20 AM Electronically Signed By:Jen Torres RN
[2018-12-09] MEDS ORDERED: CHLORTHALIDONE 25 MG TAB PO SCH (11:15)
[2018-12-09] MEDS: LOSARTAN POTASSIUM 50 MG TAB PO SCH ×2 (11:38→20:29)
[2018-12-09] MEDS: METOPROLOL SUCCINATE XR 50 MG TAB PO SCH (11:39)
--- NOTE | 2018-12-09 11:47 | SOAPPROG ---
GERARD Progress Note Assessment/Plan: Assessment: Delightful legally blin 88 yo female s/p recent admission for vertebral fx 2/2 fall s/p d/c to [facility] rehab yesterday who unfortunately fell upon getting home again and was too weak to be able to get around safely at home, brought back to ER for admission and further eval and care - -s/p fall, weakness, h/o cva, h/o recent fall w/ vertebral fx, s/p rehab w/ d/c yesterday - likely needs SNF and dw dtr and pt who agree - would need longer pt/ ot and ongoing care, case mngt consulted and helping w/ arranging. Will change to inpt from obs if needed for this. -h/o a fib - cont eliquis -htn - hadn't rec'd bp meds yet today - now ordered, re-assess bp -vertebral fx - better now s/p cement and rehab, off pain meds -weakness - pt/ot ordered pls eval and treat, needs SNF -NIDDM - metformin -constipation - ordered miralax, worked well at rehab and she would like to continue this -dispo - likely to SNF Plan: 12/09/18 11:43 12/09/18 11:47 Subjective: Doing ok, feels weak and not able to return home yet, disappointed w/ fall yesterday at home Objective: Vital Signs Temp Pulse Resp BP Pulse Ox 36.3 C 84 14 167/92 H 95 12/09/18 08:00 12/09/18 11:39 12/09/18 08:00 12/09/18 11:39 12/09/18 08:00 Laboratory Results 12/09/18 04:00 12/09/18 04:00 12/08/18 12/09/18 12/10/18 05:59 05:59 05:59 Output Total 100 Balance -100 Gen: pleasant, alert and oriented w/ some cognitive impairment, dtr at bedside and very helpful Heent: legally blind Chest: cta b CV: irreg ABD: soft nt nd Ext: LLE >RLE edema mild chronic L>R ICD10 Worksheet Patient Problems: Problems Problem Status Onset Atrial fibrillation Acute Chronic Disease Mgmt/Transitional Care Acute Diverticulitis Acute HTN (hypertension) Acute Weakness Acute Fall from standing Acute
[2018-12-09] MEDS: POLYETHYLENE GLYCOL 3350 17 GM PKT PO SCH (12:31)
[2018-12-09] MEDS: APIXABAN 5 MG TAB PO SCH ×2 (12:32→20:29)
[2018-12-09] MEDS: LIOTHYRONINE SODIUM 5 MCG TAB PO SCH ×2 (12:32→20:32)
[2018-12-09] MEDS: LEVOTHYROXINE 125 MCG TAB PO SCH (12:34)
--- NOTE | 2018-12-09 16:40 | PDMN ---
Medical Necessity Medical necessity: [facility] General Admission: 88 yo presents w/ mechanical fall after recent admit for fall and lumbar fx, likely multifactorial from deconditioning and effects of prior CVA and poor vision. Family does not feel she is safe at home. PT/OT evals ordered. Pt initially OBS but cont w/ weakness today, per MD unsafe at home, will need longer PT/OT ongoing care, case management consulted. Hx afib on anticoag, CVA, DMII, legally blind. Change to IP status 210/19@1150 per MD order
[2018-12-09] MEDS ORDERED: traZODone 50 MG TAB PO SCH (18:00)
[2018-12-09] MEDS ORDERED: CYANO/VITAMIN B12 1000 MCG TAB PO SCH (18:00)
[2018-12-09] MEDS ORDERED: ERGOCALCIFEROL 50,000 I.UNIT CAP PO SCH (18:00)
[2018-12-09] MEDS ORDERED: GABAPENTIN 100 MG CAP PO SCH (21:00)
[2018-12-10] MEDS: LEVOTHYROXINE 125 MCG TAB PO SCH (05:30)
[2018-12-10] MEDS ORDERED: metFORMIN HCL 500 MG TAB PO SCH (08:00)
[2018-12-10] MEDS: LOSARTAN POTASSIUM 50 MG TAB PO SCH (08:38)
[2018-12-10] MEDS: LIOTHYRONINE SODIUM 5 MCG TAB PO SCH (08:38)
[2018-12-10] MEDS: METOPROLOL SUCCINATE XR 50 MG TAB PO SCH (08:39)
[2018-12-10] MEDS: APIXABAN 5 MG TAB PO SCH (08:39)
[2018-12-10 08:43] VITALS: BP 140/98
[2018-12-10] MEDS: POLYETHYLENE GLYCOL 3350 17 GM PKT PO SCH (08:43)
[2018-12-10] MEDS ORDERED: CHOLECALCIFEROL VIT D3 1,000 UNITS TAB PO SCH (09:00)
--- NOTE | 2018-12-10 13:24 | SOAPPROG ---
SOAP Progress Note Assessment/Plan: Assessment: Plan: 12/10/18 13:23 fall, weakness. Will need to return to snf. poss today if arrangements made. Heidi worked reasonably well for her dm--stable legally blind--stable CHF--balanced hypo T--stable Subjective: Fell yesterday transferring from bathroom. No LOC. No Pain. Weakness still an issue with walking. Objective: Vital Signs Temp Pulse Resp BP Pulse Ox 36.8 C 93 18 140/98 H 96 12/10/18 08:41 12/10/18 08:41 12/10/18 08:41 12/10/18 08:41 12/10/18 08:41 12/09/18 12/10/18 12/11/18 05:59 05:59 05:59 Intake Total 1100 Output Total 300 Balance 1100 -300 Gen: NAD HEENT: legally blind no evidence of trauma or tenderness Lungs: CTAB Heart: irreg irreg with rate control Abd + bs, soft, NT, ND LE's trace edema left > right ICD10 Worksheet Patient Problems: Problems Problem Status Onset Fall from standing Acute HTN (hypertension) Acute Weakness Acute Atrial fibrillation Acute Chronic Disease Mgmt/Transitional Care Acute Diverticulitis Acute
--- NOTE | 2018-12-10 13:28 | PDIAF ---
- Diagnosis Diagnosis: rle weakness, falls, dm, chf Code Status: Do Not Resuscitate - Medication Management Discharge Medications: electronically signed and located in the Home Medication List. PICC Care - Routine: N/A - Orders Services needed: Physical Therapy, Occupational Therapy Isolation Type: None Diet Recommendation: no restrictions on diet Diet Texture: Regular Texture Diet Weigh Patient: weekly Guajardo: No - Follow Up Care Current Providers and Referrals: Max Farah PA [Primary Care Provider] - As per Instructions
--- NOTE | 2018-12-10 14:37 | GDS ---
[f rep st] DISCHARGE SUMMARY REASON FOR ADMISSION: Fall, weakness. DISCHARGE DIAGNOSIS: Fall, weakness. HOSPITAL COURSE: The patient was admitted from the ER after being picked up from home by ambulance f or a fall within her home. She had just completed a rehab stay at [facility] for weakness and h ad been transferred home. She was transferring from bathroom back to bed and fell. She hit her head . For that reason, paramedics brought her to the hospital. CT of her head was negative. No other a cute findings were noted. The patient is not having any pain. She is still weak when it comes to wa lking on her right leg, which is known to be a challenge given prior stroke. She is otherwise unchan ged except for weakness. DISPOSITION: Given recent discharge from senior living, she will likely go back to [facility] today. Her medicines are unchanged. She will have outpatient follow with us when she has completed her rehab stay. /[id number]/MODL
== END 2018-12-10 15:19 | DRG 948 ==
LOC: EDUNIT# → F1N 04:29 → OBSVTOIN 11:50
PROVIDERS: ADMIT Student in an Organized Health Care Education/Training Program; ATTEND Internal Medicine
DX: R53.1 Weakness (principal); R29.6 Repeated falls; I69.341 Monoplegia of lower limb following cerebral infarction affecting right dominant side; I48.91 Unspecified atrial fibrillation; Z79.01 Long term (current) use of anticoagulants; K59.00 Constipation, unspecified; E11.9 Type 2 diabetes mellitus without complications; I10 Essential (primary) hypertension; H54.8 Legal blindness, as defined in USA; Z87.310 Personal history of (healed) osteoporosis fracture
CPT/HCPCS: 97161-GP

== ENCOUNTER → 2019-02-20 | Outpatient (CLI) | payer OTHER, BC | LOC: FIMAGING 13:25 | PROVIDERS: ATTEND Physician Assistant | DX: M48.07 Spinal stenosis, lumbosacral region (principal); M43.17 Spondylolisthesis, lumbosacral region; M48.061 Spinal stenosis, lumbar region without neurogenic claudication; M51.34 Other intervertebral disc degeneration, thoracic region; M51.36 Other intervertebral disc degeneration, lumbar region ==

== ENCOUNTER 2019-03-15 08:36 | Inpatient (IN) | payer OTHER, BC ==
--- NOTE | 2019-03-15 09:00 | EDPHY ---
H & P Stated Complaint: N/V, UTI - Personal History Current Tetanus/Diphtheria Vaccine: Yes Current Tetanus Diphtheria and Acellular Pertussis (TDAP): Yes - Medical/Surgical History Hx Asthma: No Hx Chronic Respiratory Disease: No Hx Diabetes: Yes Hx Cardiac Disease: Yes Hx Renal Disease: No Hx Cirrhosis: No Hx Alcoholism: No Hx HIV/AIDS: No Hx Splenectomy or Spleen Trauma: No Other PMH: a-fib, UTI, thyroid out, appy, DM, HTN, CHF,dementia,kriss/cpap,COCOPAH - Social History Smoking Status: Never smoked Time Seen by Provider: 03/15/19 08:51 HPI/ROS: CHIEF COMPLAINT: Nausea vomiting abdominal pain recent UTI HISTORY OF PRESENT ILLNESS: 89-year-old female via ambulance accompanied by her daughter. Patient was seen the office yesterday for complaints of flank pain, diagnosed with UTI, has been experiencing nausea, vomiting, abdominal pain since this morning. No back or flank pain. No fever or chills. No chest pain. Per EMS, was hypotensive on scene, given 500 cc bolus with subsequent normotension. She also notes dyspnea for the past 2 days worse at night. No chest pain. No syncope no near syncope. PRIMARY CARE PROVIDER: Dr. Pro Garibay REVIEW OF SYSTEMS: 10 systems reviewed and negative with the exception of the elements mentioned in the history of present illness PAST MEDICAL & SURGICAL HISTORY: CHF. Atrial fibrillation. On chronic Eliquis anticoagulation. Cholecystectomy. Appendectomy. SOCIAL HISTORY: Nonsmoker. Lives by herself. PHYSICAL EXAM (Prior to examination, patient consented to physical exam, hands were washed and my usual and customary physical exam procedures followed) 1) GENERAL: Well-developed, well-nourished, alert and oriented. Appears to be in no acute distress. 2) HEAD: Normocephalic, atraumatic 3) HEENT: Pupils equal, round, reactive to light bilaterally. Sclera anicteric. Nasopharynx, oropharynx, clear, no lesions. Dry Mucous membranes. 4) NECK: Full range of motion, no meningeal signs. 5) LUNGS: Clear auscultation bilaterally, no wheezes, no rhonchi, no retractions. 6) HEART: Regular rate and rhythm, no murmur, no heave, no gallop. 7) ABDOMEN: No guarding, tender to palpation periumbilical region. Negative peritoneal sign, 8) MUSCULOSKELETAL: Moving all extremities, no focal areas of tenderness, no obvious trauma. No peripheral edema or discoloration. 9) BACK: No CVA tenderness, no midline vertebral tenderness, no fluctuance, no step-off, no obvious trauma, no visual or palpable abnormality. 10) SKIN: No rash, no petechiae. 11) Psychiatric: Patient is oriented X 3, there is no agitation. DIFFERENTIAL DIAGNOSIS: In no particular order including but not limited to bowel obstruction, medication adverse effect, gastroenteritis (Martinez,Delisa Trista) Constitutional: Initial Vital Signs Temperature (C) 37 C 03/15/19 08:48 Heart Rate 85 03/15/19 08:48 Respiratory Rate 18 03/15/19 08:48 Blood Pressure 131/68 H 03/15/19 08:48 O2 Sat (%) 86 L 03/15/19 08:48 O2 Delivery Mode Nasal Cannula O2 (L/minute) 2 Allergies/Adverse Reactions: levothyroxine Allergy (Mild, Verified 09/09/18 01:04) Other-Enter Comments codeine Allergy (Verified 09/09/18 01:04) Unknown gluten Allergy (Verified 09/09/18 01:04) Diarrhea Home Medications: Medication Instructions Recorded Apixaban [Eliquis] 5 mg PO BID 10/28/17 Chlorthalidone [Chlorthalidone 25 12.5 mg PO SUTUTHSA 10/28/17 mg (*)] Levothyroxine [Synthroid 125 mcg 125 mcg PO DAILY06 10/28/17 (*)] Liothyronine Sodium [Cytomel 5 mcg 5 mcg PO BID 10/28/17 (*)] metFORMIN HCL [Glucophage 500 mg 500 mg PO DAILY@08 10/28/17 (*)] traZODone [traZODONE 50MG (*)] 100 mg PO DAILY@1800 10/28/17 Losartan Potassium [Cozaar 50 mg 25 mg PO BID #60 tab 10/30/17 (*)] Cyanocobalamin [Vitamin B12 (*)] 1,000 mcg PO DAILY@1800 09/09/18 Metoprolol Succinate Xr [Toprol Xl 25 mg PO DAILY 09/09/18 50 mg (*)] Cholecalciferol Vit D3 [Vitamin D3 2,000 units PO DAILY 12/09/18 (*)] Ergocalciferol (Vitamin D2) 50,000 unit PO CHOI@1800 12/09/18 [Vitamin D2] Gabapentin [Neurontin 100 MG (*)] 100 mg PO HS 12/09/18 Bactrim DS 03/15/19 traMADol 03/15/19 Medical Decision Making - Diagnostics EKG Interpretation: EKG: Complete interpretation has been separately recorded in the [facility] archive. Summary impression: Atrial fibrillation, rate 107, no ST segment elevation or depression noted (Brandon Albarado) Imaging Results: Imaging Impressions Abdomen CT 03/15/19 09:07 Impression: 1. Thickening of the bladder, new since the prior study. Recommend correlating with urine studies to exclude underlying cystitis. 2. Trace bilateral pleural effusions with interlobular septal thickening, possibly related to underlying CHF. 3. Stable to slight interval increase in size of a pancreatic body/tail cyst. This measures 1.8 x 1.6 cm. Recommend reimaging every one year. 4. Small hiatal hernia. Findings and recommendations discussed with Delisa Henriquez at 1034 hour, . Chest X-Ray 03/15/19 09:07 Impression: Chronic airways disease and hypoventilation. Imaging Impressions Abdomen CT 03/15/19 09:07 Impression: 1. Thickening of the bladder, new since the prior study. Recommend correlating with urine studies to exclude underlying cystitis. 2. Trace bilateral pleural effusions with interlobular septal thickening, possibly related to underlying CHF. 3. Stable to slight interval increase in size of a pancreatic body/tail cyst. This measures 1.8 x 1.6 cm. Recommend reimaging every one year. 4. Small hiatal hernia. Findings and recommendations discussed with Delisa Henriquez at 1034 hour, . Chest X-Ray 03/15/19 09:07 Impression: Chronic airways disease and hypoventilation. Images reviewed myself (Delisa Henriquez) ED Course/Re-evaluation: 9:14 a.m.: I have evaluated the patient reviewed her old medical records. She is complaining of new onset dyspnea x2 days as well as acute abdominal pain. Will plan ultimately hospital admission, will obtain diagnostic studies including CT of abdomen pelvis to evaluate for possible bowel obstruction. Care of patient under supervision of primary Supervising physician Dr Albarado with whom I discussed case. 10:43 a.m.: Patient was re-evaluated with serial examinations. Consultation with patient's primary care provider, Dr Melissa Nicolas who will admit patient. ( Delisa Henriquez) - Data Points Laboratory Results: Laboratory Results 03/15/19 09:09 03/15/19 09:09 03/15/19 03/15/19 03/15/19 09:09 09:09 09:05 WBC 11.65 10^3/uL H 10^3/uL (3.80-9.50) RBC 4.39 10^6/uL 10^6/uL (4.18-5.33) Hgb 13.8 g/dL g/dL (12.6-16.3) POC Hgb 14.6 gm/dL gm/dL (12.6-16.3) Hct 39.1 % % (38.0-47.0) POC Hct 43 % % (38-47) MCV 89.1 fL fL (81.5-99.8) MCH 31.4 pg pg (27.9-34.1) MCHC 35.3 g/dL g/dL (32.4-36.7) RDW 13.2 % % (11.5-15.2) Plt Count 158 10^3/uL 10^3/uL (150-400) MPV 10.5 fL fL (8.7-11.7) Neut % (Auto) 82.9 % H % (39.3-74.2) Lymph % (Auto) 7.0 % L % (15.0-45.0) Rich % (Auto) 6.5 % % (4.5-13.0) Eos % (Auto) 3.1 % % (0.6-7.6) Baso % (Auto) 0.2 % L % (0.3-1.7) Nucleat RBC Rel Count 0.0 % % (0.0-0.2) Absolute Neuts (auto) 9.66 10^3/uL H 10^3/uL (1.70-6.50) Absolute Lymphs (auto) 0.82 10^3/uL L 10^3/uL (1.00-3.00) Absolute Monos (auto) 0.76 10^3/uL 10^3/uL (0.30-0.80) Absolute Eos (auto) 0.36 10^3/uL 10^3/uL (0.03-0.40) Absolute Basos (auto) 0.02 10^3/uL 10^3/uL (0.02-0.10) Absolute Nucleated RBC 0.00 10^3/uL 10^3/uL (0-0.01) Immature Gran % 0.3 % % (0.0-1.1) Immature Gran # 0.03 10^3/uL 10^3/uL (0.00-0.10) POC Sodium 136 mEq/L mEq/L (135-145) Sodium 135 mEq/L mEq/L (135-145) POC Potassium 3.7 mEq/L mEq/L (3.3-5.0) Potassium 3.7 mEq/L mEq/L (3.5-5.2) POC Chloride 100 mEq/L mEq/L (97-110) Chloride 99 mEq/L mEq/L (97-110) Carbon Dioxide 21 mEq/l L mEq/l (22-31) POC Total CO2 22 mEq/L mEq/L (22-31) Anion Gap 15 mEq/L H mEq/L (6-14) POC BUN 18 mg/dL mg/dL (7-23) BUN 17 mg/dL mg/dL (7-23) Creatinine 0.9 mg/dL mg/dL (0.6-1.0) POC Creatinine 0.9 mg/dL mg/dL (0.6-1.0) Estimated GFR 59 Glucose 176 mg/dL H mg/dL (70-100) POC Glucose 183 mg/dL H mg/dL (70-100) Calcium 9.4 mg/dL mg/dL (8.5-10.4) Total Bilirubin 1.3 mg/dL mg/dL (0.1-1.4) Conjugated Bilirubin 0.5 mg/dL mg/dL (0.0-0.5) Unconjugated Bilirubin 0.8 mg/dL mg/dL (0.0-1.1) AST 18 IU/L IU/L (14-46) ALT 35 IU/L IU/L (9-52) Alkaline Phosphatase 73 IU/L IU/L (38-126) POC Troponin I Total Protein 6.5 g/dL g/dL (6.3-8.2) Albumin 3.6 g/dL g/dL (3.5-5.0) Lipase 68 IU/L IU/L (23-300) 03/15/19 09:02 WBC RBC Hgb POC Hgb Hct POC Hct MCV MCH MCHC RDW Plt Count MPV Neut % (Auto) Lymph % (Auto) Rich % (Auto) Eos % (Auto) Baso % (Auto) Nucleat RBC Rel Count Absolute Neuts (auto) Absolute Lymphs (auto) Absolute Monos (auto) Absolute Eos (auto) Absolute Basos (auto) Absolute Nucleated RBC Immature Gran % Immature Gran # POC Sodium Sodium POC Potassium Potassium POC Chloride Chloride Carbon Dioxide POC Total CO2 Anion Gap POC BUN BUN Creatinine POC Creatinine Estimated GFR Glucose POC Glucose Calcium Total Bilirubin Conjugated Bilirubin Unconjugated Bilirubin AST ALT Alkaline Phosphatase POC Troponin I 0.01 ng/mL ng/mL (0.00-0.08) Total Protein Albumin Lipase Point of Care Test Results: Chemistry 03/15/19 03/15/19 09:05 09:02 POC Sodium 136 mEq/L mEq/L (135-145) POC Potassium 3.7 mEq/L mEq/L (3.3-5.0) POC Chloride 100 mEq/L mEq/L (97-110) POC Total CO2 22 mEq/L mEq/L (22-31) POC BUN 18 mg/dL mg/dL (7-23) POC Creatinine 0.9 mg/dL mg/dL (0.6-1.0) POC Glucose 183 mg/dL H mg/dL (70-100) POC Troponin I 0.01 ng/mL ng/mL (0.00-0.08) ISTAT H&H 03/15/19 09:05 POC Hgb 14.6 gm/dL gm/dL (12.6-16.3) POC Hct 43 % % (38-47) Departure - Departure Referrals: Patient,NotPresent [Unknown] - As per Instructions
[2019-03-15 09:14] LABS: PLATELET COUNT 158 10^3/uL (150-400)
--- NOTE | 2019-03-15 09:29 | CPEKG ---
Test Reason : OPEN Blood Pressure : / mmHG Vent. Rate : 107 BPM Atrial Rate : 105 BPM P-R Int : 155 ms QRS Dur : 094 ms QT Int : 356 ms P-R-T Axes : 000 -16 -59 degrees QTc Int : 475 ms Atrial fibrillation Borderline left axis deviation Probable anterior infarct, age indeterminate Confirmed by Brandon Albarado ([id number]) on 03/15/2019 9:28:29 AM Referred By: Brandon Albarado Confirmed By:Brandon Albarado
[2019-03-15] MEDS ORDERED: IOPAMIDOL (ISOVUE-300) 100 ML BTL ONE (09:34)
[2019-03-15] MEDS ORDERED: ONDANSETRON DISINTEGRATING 4 MG TAB PO PRN (10:51)
[2019-03-15] MEDS ORDERED: ONDANSETRON 4 MG/2 ML VIAL IVP PRN (10:51)
[2019-03-15] MEDS ORDERED: ACETAMINOPHEN 325 MG TAB PO PRN (10:51)
[2019-03-15] MEDS: NS 1,000 ML IV SCH ×2 (13:00→22:15)
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
--- NOTE | 2019-03-15 13:55 | ASMTCMCOM ---
CM Note CM Note Notes: Spoke with Dr. Garibay's PA Dale. Patient has been ordered a hospice consult via [facility]. Referral via allscripts. Patient with complex medical history and she may elect to stop aggressive treatment. CM to follow for needs. Plan: TBD Date Signed: 03/15/2019 01:54 PM Electronically Signed By:Jen Torres RN
[2019-03-15] MEDS: FLUTICASONE/SALMETER 250/50MCG DISKUS IH SCH ×2 (14:28→23:41)
[2019-03-15] MEDS ORDERED: NS 250 ML IV ONE (15:15)
[2019-03-15] MEDS: IPRATROPIUM/ALBUTEROL 3 ML DEYVIAL IH SCH ×2 (16:57→23:42)
[2019-03-16] MEDS: IPRATROPIUM/ALBUTEROL 3 ML DEYVIAL IH SCH ×4 (05:10→22:21)
[2019-03-16] MEDS: NS 1,000 ML IV SCH ×2 (08:14→17:59)
[2019-03-16] MEDS: FLUTICASONE/SALMETER 250/50MCG DISKUS IH SCH ×2 (08:31→22:21)
--- NOTE | 2019-03-16 08:43 | ASMTCMCOM ---
CM Note CM Note Notes: Spoke with Guadalupe from [facility] who reached out to family. Patient is too upset to discuss hospice at this point in time. CM will try to connect with family at some point today. Plan: TBD Date Signed: 03/16/2019 08:42 AM Electronically Signed By:Jen Torres RN
--- NOTE | 2019-03-16 11:10 | SOAPPROG ---
SOAP Progress Note Assessment/Plan: Assessment: 89 yo female admitted w/ progressive weakness, nausea, likely UTI and increased difficulty for family and caretakers to be able to handle her care at home. -likely UTI - on ceftriaxone awaiting culture/sensitivities. -hypotension - bp currently stable, BNP not too significantly high around 600 - volume status ok, will restart metoprolol but hold losartan. Chlorthalidone she takes qod will reassess bp in am. -nausea - resolved - ? was related to bactrim which was tried as outpt for UTI -weakness and progressive difficulty w care at home w/ h/o CVA w/ R sided weakness - family and pt discussing care goals and options, returning home safely is an overwhelming challenge given Akosua's decreased vision, weakness, increased challenge of being able to get her out of bed (2/2 in part due to weight and physical limitations in addition) - case management assisting, appreciate help. -PARUL - was not on cpap last night, will have tonight -dispo - see weakness above, likely SNF -dvt proph - eliquis Plan: 03/16/19 11:05 03/16/19 11:13 Subjective: Feeling better today, denies nausea, was happy to get out of bed and get to the chair, felt a little shaky/unstable w/ walker after not getting up for past several days. Objective: Vital Signs Temp Pulse Resp BP Pulse Ox 36.9 C 88 18 112/81 H 97 03/16/19 08:00 03/16/19 08:00 03/16/19 08:00 03/16/19 08:00 03/16/19 08:00 03/15/19 03/16/19 03/17/19 05:59 05:59 05:59 Intake Total 1510 Output Total 200 Balance 1310 GEN: pleasant, alert Heent: legally blind Neck: soft/supple Chest: CTA CV: tachy rr ABD: soft nt nd Ext; trace ankle edema Msk: weak R sided rene RLE from old CVA - Pending Discharge Pending Discharge Within 24 Hours: No ICD10 Worksheet Patient Problems: Problems Problem Status Onset Atrial fibrillation Acute Chronic Disease Mgmt/Transitional Care Acute Diverticulitis Acute HTN (hypertension) Acute Weakness Acute Fall from standing Acute
[2019-03-16] MEDS ORDERED: traMADol 50 MG TAB PO PRN (11:11)
[2019-03-16] MEDS: METOPROLOL SUCCINATE XR 50 MG TAB PO SCH (11:39)
--- NOTE | 2019-03-16 11:49 | PDMN ---
Medical Necessity Medical necessity: Pt meets IP criteria per RETAIL ASSISTANT & MCG M-300; est los >2 mn for eval/tx of suspected UTI w/hypotension, nausea & progressive weakness, as well as likely acute on chronic CHF w/dyspnea; cxs pending; admit for further monitoring, IV abx & Hospice consult to discuss poc; comorbid advanced age; per H&P & order 03/15/19
--- NOTE | 2019-03-16 12:44 | ASMTCMCOM ---
CM Note CM Note Notes: Met with pita's daughter Vonnie and her Alistair. They are more interested in palliative care at this point in time and also in finding permanent home for patient as her needs exceed their current capabilities to provide enough care. I have provided her with names of several SNF in the area and the web site to compare sites. The patient's son is coming tomorrow and they can look at facilities for placement. CM will start with some referrals in allscripts today. I have notified Vianney at [facility] of families desire for palliative care. Plan: To SNF when medically cleared for discharge. Date Signed: 03/16/2019 12:43 PM Electronically Signed By:Jen Torres RN
[2019-03-16] MEDS: traZODone 50 MG TAB PO SCH (17:48)
[2019-03-16] MEDS: CYANO/VITAMIN B12 1000 MCG TAB PO SCH (17:48)
[2019-03-16] MEDS: APIXABAN 5 MG TAB PO SCH (23:00)
[2019-03-16] MEDS: GABAPENTIN 100 MG CAP PO SCH (23:00)
[2019-03-17] MEDS: IPRATROPIUM/ALBUTEROL 3 ML DEYVIAL IH SCH ×4 (05:59→23:10)
[2019-03-17] MEDS: APIXABAN 5 MG TAB PO SCH ×2 (07:40→23:32)
[2019-03-17] MEDS: METOPROLOL SUCCINATE XR 50 MG TAB PO SCH (07:40)
[2019-03-17] MEDS: metFORMIN HCL 500 MG TAB PO SCH (07:40)
[2019-03-17] MEDS: CHOLECALCIFEROL VIT D3 1,000 UNITS TAB PO SCH (07:40)
[2019-03-17] MEDS: FLUTICASONE/SALMETER 250/50MCG DISKUS IH SCH ×2 (10:25→21:22)
--- NOTE | 2019-03-17 11:43 | SOAPPROG ---
SOAP Progress Note Assessment/Plan: Assessment: 89 yo female admitted w/ progressive weakness, nausea, likely UTI and increased difficulty for family and caretakers to be able to handle her care at home. -likely UTI - on ceftriaxone which Cx is sensitive to (outpt culture), can change to po when ready for d/c -hypotension - bp was initially low, improved yesterday and resumed part of outpt meds, now sbp 146, so will restart losartan as well. -nausea - resolved - ? was related to bactrim which was tried as outpt for UTI , has resolved, feels better overall. -weakness and progressive difficulty w care at home w/ h/o CVA w/ R sided weakness - family and pt discussing care goals and options, returning home safely is an overwhelming challenge given Akosua's decreased vision, weakness, increased challenge of being able to get her out of bed (2/2 in part due to weight and physical limitations in addition) - case management assisting, appreciate help. Pt's son from [place] is driving up and he and dtr Vonnie plan on discussing options with Akosua and case mngt today. -PARUL - cont on cpap -dispo - see weakness above -dvt proph - eliquis Plan: 03/16/19 11:05 03/16/19 11:13 03/17/19 11:33 Subjective: Feeling better today, anxious to talk w/ son an dtr Objective: Vital Signs Temp Pulse Resp BP Pulse Ox 36.7 C 69 16 146/86 H 99 03/17/19 07:11 03/17/19 10:25 03/17/19 10:25 03/17/19 07:11 03/17/19 10:25 03/16/19 03/17/19 03/18/19 05:59 05:59 05:59 Intake Total 1510 975 Output Total 200 1600 600 Balance 1310 -625 -600 Gen: alert oriented HEENT: legally blind Neck: soft Supple CHEST: few rhonchi CV: rrr ABD: soft nt EXT: trace edema - Pending Discharge Pending Discharge Within 48 Hours: Yes Pending Discharge Date: 03/19/19 Pending Discharge Time: 11:00 ICD10 Worksheet Patient Problems: Problems Problem Status Onset Atrial fibrillation Acute Chronic Disease Mgmt/Transitional Care Acute Diverticulitis Acute HTN (hypertension) Acute Weakness Acute Fall from standing Acute
[2019-03-17] MEDS: LIOTHYRONINE SODIUM 5 MCG TAB PO SCH ×2 (13:30→23:32)
[2019-03-17] MEDS: LEVOTHYROXINE 125 MCG PO SCH (13:30)
[2019-03-17] MEDS: LOSARTAN POTASSIUM 50 MG TAB PO SCH ×2 (13:32→23:32)
--- NOTE | 2019-03-17 14:43 | ASMTCMCOM ---
CM Note CM Note Notes: CM spoke with pt's daughter Vonnie who reports that [facility] is their first choice. CM submit SNF referral to [facility]. CM awaiting to hear back if pt is accepted there. Per RN, pt likely to be ready for dishcarge tomorrow. CM spoke with [facility] will follow-up with pt at [facility] for Palliative Care support after discharge from [facility]. Plan: likely [facility] SN[facility] tomorrow, pending acceptance and bed availability. Date Signed: 03/17/2019 02:43 PM Electronically Signed By:JO Bradford
[2019-03-17] MEDS: traZODone 50 MG TAB PO SCH (17:40)
[2019-03-17] MEDS: CYANO/VITAMIN B12 1000 MCG TAB PO SCH (17:40)
[2019-03-17] MEDS ORDERED: ERGOCALCIFEROL 50,000 I.UNIT CAP PO SCH (18:00)
[2019-03-17] MEDS: GABAPENTIN 100 MG CAP PO SCH (23:33)
[2019-03-18] MEDS: LEVOTHYROXINE 125 MCG PO SCH (06:04)
[2019-03-18] MEDS: IPRATROPIUM/ALBUTEROL 3 ML DEYVIAL IH SCH ×2 (06:10→10:21)
[2019-03-18] MEDS: CHOLECALCIFEROL VIT D3 1,000 UNITS TAB PO SCH (08:36)
[2019-03-18] MEDS: APIXABAN 5 MG TAB PO SCH (08:36)
[2019-03-18] MEDS: LIOTHYRONINE SODIUM 5 MCG TAB PO SCH (08:37)
[2019-03-18] MEDS: METOPROLOL SUCCINATE XR 50 MG TAB PO SCH (08:37)
[2019-03-18] MEDS: metFORMIN HCL 500 MG TAB PO SCH (08:37)
[2019-03-18] MEDS: LOSARTAN POTASSIUM 50 MG TAB PO SCH (08:38)
--- NOTE | 2019-03-18 08:42 | SOAPPROG ---
SOAP Progress Note Assessment/Plan: Assessment: 89yo female admitted for UTI, weakness, and difficulty of family to continue to care for her at home 2/2 weakness. Plan: UTI: has had 4 days of ceftriaxone, will switch to PO for anticipated d/c Weakness: d/c to SNF as it is too hard for her family to care for her at home at this point End of life care: [facility] to follow her at SNF for palliative care/ hospice going forward DVT proph: fernando Dispo: anticipate d/c to SNF today 03/18/19 08:39 Subjective: Akosua is resting in the chair this morning. Says she is feeling overall well and is eager to d/c from the hospital. Objective: Vital Signs Temp Pulse Resp BP Pulse Ox 36.7 C 81 18 136/83 H 96 03/18/19 07:06 03/18/19 07:06 03/18/19 07:06 03/18/19 07:06 03/18/19 07:06 03/17/19 03/18/19 03/19/19 05:59 05:59 05:59 Intake Total 975 1175 Output Total 1600 1650 Balance -625 -475 Gen- alert, oriented, vitals stable Head- normocephalic, atraumatic Resp- LCTAB, no wheezing, rhonchi, rales CV- S1S2, RRR, no murmurs, rubs, gallops Skin- warm and dry Extremities- no peripheral edema ICD10 Worksheet Patient Problems: Problems Problem Status Onset Atrial fibrillation Acute Chronic Disease Mgmt/Transitional Care Acute Diverticulitis Acute Fall from standing Acute HTN (hypertension) Acute Weakness Acute
[2019-03-18] MEDS ORDERED: CEFUROXIME AXETIL 250 MG TAB PO SCH (09:00)
[2019-03-18] MEDS ORDERED: CHLORTHALIDONE 25 MG TAB PO SCH (09:00)
[2019-03-18] MEDS: FLUTICASONE/SALMETER 250/50MCG DISKUS IH SCH (10:21)
[2019-03-18 11:20] VITALS: BP 164/86
--- NOTE | 2019-03-18 15:20 | PDIAF ---
- Diagnosis Code Status: Do Not Resuscitate - Medication Management Discharge Medications: electronically signed and located in the Home Medication List. - Orders Isolation Type: None Diet Recommendation: no restrictions on diet Diet Texture: Regular Texture Diet - Follow Up Care Current Providers and Referrals: Patient,NotPresent [Unknown] - As per Instructions
--- NOTE | 2019-03-18 16:43 | ASDISCHSUM ---
Discharge Information Plan Status:SNF Medically Cleared to Leave:03/18/2019 Discharge Date:03/18/2019 03:51 PM D/C Disposition:Nursing Home Facility ADT D/C Disposition:Home, Routine, Self-Care Projected Discharge Date:03/16/2019 11:00 AM Transportation at D/C:Wheelchair Van Discharge Delay Reason: Follow-Up Date:03/16/2019 11:00 AM Discharge Slot: Final Diagnosis: Placement Information Referral Type:*Hospice Referral ID:[id number] Provider Name:[facility] Address 1:[address] Address 2: City:[place] Selection Factors: State:[place] Referral Type:*Long-Term/SNF Referral ID:[id number] Provider Name:[facility] [place] Address 1:[address] [facility] Address 2: City:[place] Selection Factors: State:[place] Patient Contact Information Contact Name:KALIE Relationship:Daughter Address: Work Phone: City: [facility] Phone: [facility]/Zip Code: Email: Financial Information Financial Class:Medicare Primary Plan Desc:MEDICARE INPATIENT Primary Plan Number:[id number] Secondary Plan Desc:[employer] Secondary Plan Number:[id number] Assessment Information LACE LACE Length of stay for Answers: 3 days current admission Acuity / Level of Answers: Yes Care: Did the patient have an inpatient admission? Comorbidities - select Answers: Chronic pulmonary disease all that apply Congestive heart failure Diabetes (uncontrolled or controlled) # of Emergency department Answers: 1-2 visits in the last 6 months Score: 12 Date Signed: 03/18/2019 03:49 PM Electronically Signed By:Radha Murrieta RN [facility] Progress Note CM Note CM Note Notes: Spoke with Dr. Garibay's PA Dale. Patient has been ordered a hospice consult via [employer]. Referral via [employer]. Patient with complex medical history and she may elect to stop aggressive treatment. CM to follow for needs. Plan: TBD Date Signed: 03/15/2019 01:54 PM Electronically Signed By:Jen Torres RN [facility] Progress Note CM Note CM Note Notes: Spoke with Guadalupe from [facility] who reached out to family. Patient is too upset to discuss hospice at this point in time. CM will try to connect with family at some point today. Plan: TBD Date Signed: 03/16/2019 08:42 AM Electronically Signed By:Jen Torres RN [facility] CM Progress Note CM Note CM Note Notes: Met with pita's daughter Vonnie and her Alistair. They are more interested in palliative care at this point in time and also in finding permanent home for patient as her needs exceed their current capabilities to provide enough care. I have provided her with names of several SNF in the area and the web site to compare sites. The patient's son is coming tomorrow and they can look at facilities for placement. [facility]. I have notified Vianney at [facility] of families desire for palliative care. Plan: To SNF when medically cleared for discharge. Date Signed: 03/16/2019 12:43 PM Electronically Signed By:Jen Torres RN [facility] CM Progress Note CM Note CM Note Notes: CM spoke with pt's daughter Vonnie who reports that [facility] is their first choice. CM submit SNF referral to [facility]. CM awaiting to hear back if pt is accepted there. Per RN, [facility] CM [facility] with [facility] will follow-up with pt at [facility] for Palliative Care support after discharge from [facility]. Plan: likely [facility] SNF tomorrow, pending acceptance and bed availability. Date Signed: 03/17/2019 02:43 PM Electronically Signed By:JO Bradford Case Management Discharge Plan Note Case Management Discharge Discharge Order Complete? Answers: Yes Patient to Obtain Answers: Other Notes: [facility] SNF Medications Transportation Arranged Answers: Other Notes: w/c transport arranged by Melissa with [facility] transport Transport will Pick (Date 03/18/2019 03:30 PM & Time) Faxed Final Orders Answers: Yes Notes: to [facility] Agency/Facility Transfer Answers: Yes Notes: to [facility] Report Printed & Faxed to Receiving Agency Family Notified Answers: Yes Notes: daughter in room Discharge Comments Notes: 03/18/2019 Case Management Note Faxed final orders to [facility] in [place] and [facility]. Phone call to Melissa to notify of d/c. Melissa arranged w/c transport with [facility]. RN called report. Case Management d/ cpoc: [facility] rehab in [place] with [facility] to follow outpatient. Date Signed: 03/18/2019 03:54 PM Electronically Signed By:Radha Murrieta RN Intervention Information Intervention Type:*Incorrect Registration Date of Service:03/15/2019 04:56 PM Patient Type:Inpatient Staff Member:CELESTE Simmons, Coco Hours: Discipline: Severity: Comment: Intervention Type:*IM-Signed Date of Service:03/18/2019 10:15 AM Patient Type:Inpatient Staff Member:Rosaura Stuart Hours: Discipline: Severity: Comment:
--- NOTE | 2019-03-18 18:00 | ASMTLACE ---
LACE Length of stay for Answers: 3 days current admission Acuity / Level of Answers: Yes Care: Did the patient have an inpatient admission? Comorbidities - select Answers: Chronic pulmonary disease all that apply Congestive heart failure Diabetes (uncontrolled or controlled) # of Emergency department Answers: 1-2 visits in the last 6 months Score: 12 Date Signed: 03/18/2019 03:49 PM Electronically Signed By:Radha Murrieta RN
--- NOTE | 2019-03-18 18:23 | ASMTDCNOTE ---
Case Management Discharge Discharge Order Complete? Answers: Yes Patient to Obtain Answers: Other Notes: [facility] Medications Transportation Arranged Answers: Other Notes: w/c transport arranged by Melissa with [facility] Transport will Pick (Date 03/18/2019 03:30 PM & Time) Faxed Final Orders Answers: Yes Notes: to [facility] Agency/Facility Transfer Answers: Yes Notes[facility] Printed & Faxed to Receiving Agency Family Notified Answers: Yes Notes: daughter in room Discharge Comments Notes: 03/18/2019 Case Management Note Faxed final orders to [facility] in [place] and [facility]. Phone call to Melissa to notify of d/c. Melissa arranged w/c transport with [facility]. RN called report. Case Management d/ cpoc: [facility] rehab in [place] with [facility] to follow outpatient. Date Signed: 03/18/2019 03:54 PM Electronically Signed By:Radha Murrieta RN
--- NOTE | 2019-03-18 20:45 | GDS ---
[f rep st] DISCHARGE SUMMARY ADMISSION DIAGNOSIS: Urinary tract infection and weakness. HOSPITAL COURSE: The patient is a delightful 89-year-old female, who was brought into the emergency room by her family. She was seen as an outpatient prior to admission for suspected urinary tract inf ection, was started on Bactrim. Over the next 24 hours, the patient had increased nausea, vomiting, and weakness, and overall just felt worse. Family was struggling to take care of her at home. They brought her into the emergency department. She was started on ceftriaxone, and was admitted for ongo ing management and placement. She has since responded nicely to the IV antibiotics. Her initial whi te count on admission was elevated at 11.6, has since come down to 6. The patient will be discharged on p.o. antibiotics to a assisted facility. During this hospital stay, discussions regarding palliative care versus hospice have come to surface, and the plan will be for a a trial at the [facility] nursing facility for ongoing palliative care. DISCHARGE MEDICATIONS: 1. Include Ceftin 250 mg p.o. twice daily x6 days. 2. Advair 250/50 one puff inhaled twice daily x days. 3. Tylenol 650 mg p.o. q.4 hours. 4. Trazodone 100 mg p.o. daily at bedtime. 5. . 6. Metformin 500 mg p.o. daily. 7. Cytomel 5 mcg p.o. twice daily. 8. Synthroid 125 mcg p.o. daily. 9. Eliquis 5 mg p.o. twice daily. 10. Chlorthalidone 12.5 mg p.o. every other day. 11. Her Apixaban needs to be 5 mg. 12. Cozaar 25 mg p.o. twice daily. 13. Vitamin B12 1000 mcg p.o. daily. 14. Metoprolol succinate 25 mg p.o. daily. 15. Vitamin D2 50,000 units p.o. every Monday. 16. Vitamin D3 2000 units p.o. daily. 17. Gabapentin 100 mg p.o. at bedtime. 18. Tramadol 50 mg p.o. q.12 hours p.r.n. pain. /[id number]/MODL
== END 2019-03-18 15:51 | DRG 690 ==
LOC: EDUNIT# → OBSVTOIN 10:54 → F2W 11:50
PROVIDERS: ADMIT Nurse Practitioner Family; ATTEND Internal Medicine
DX: N39.0 Urinary tract infection, site not specified (principal); I48.2 Chronic atrial fibrillation; E11.9 Type 2 diabetes mellitus without complications; E03.9 Hypothyroidism, unspecified; I11.0 Hypertensive heart disease with heart failure; I50.9 Heart failure, unspecified; F03.90 Unspecified dementia, unspecified severity, without behavioral disturbance, psychotic disturbance, mood disturbance, and anxiety; G47.33 Obstructive sleep apnea (adult) (pediatric); Z79.01 Long term (current) use of anticoagulants
CPT/HCPCS: 82435-PO; 82565-PO; 82947-PO; 84132-PO; 84295-PO; 84484-ER; 84520-PO; 85014-ER; 96365; 97116-GP; 97161-GP; 97166-GO; 97530-GP; J0696; Q9967